=== PATIENT | female | born 1955 | race Caucasian/White ===

== ENCOUNTER 2016-12-13 14:32 | Emergency (ER) | payer OTHER ==
[~2016-12-13 14:32] MED LIST: AMLO10TA PO; ARTI99.0 OU; CIPR500T89 PO; CLOT1CRE71 TOP; DOCU100C PO; FLAG500T PO; GLYB5TA PO; LISI-538 PO; LISI10TA4 PO; ONDA1TAB15 PO; PANT40TA2 PO
[2016-12-13] MEDS ORDERED: IBUPROFEN 600 MG TAB As Ordered ONE (16:46)
[2016-12-13] MEDS ORDERED: ADACEL/BOOSTRIX VACCINE (DIPHTH/PERTUSS/ACELL/TETANUS)0.5ML SYR (90715) As Ordered ONE (16:47)
[2016-12-13] MEDS ORDERED: CEPHALEXIN 250 MG CAP As Ordered ONE (16:47)
--- NOTE | 2016-12-13 17:33 | EDDOCDS ---
Nurse's Notes [facility] Name: Sweetie Juárez Age: 61 yrs Sex: Female : 1955 Arrival Date: 12/13/2016 Time: 14:32 Bed PR Private MD: Denice Cortes C Diagnosis: Puncture wound without foreign body, right foot Presentation: 12/13 14:47 Presenting complaint: Patient states: right foot puncture injury, stepped on a nail rs3 friday. Adult Sepsis Screening: The patient does not have new or worsening altered mentation. Patient's respiratory rate is less than 22. Systolic blood pressure is greater than 100. Patient has a qSOFA score of 0- Negative Sepsis Screen. Suicide/Homicide risk assessment- the patient denies having any suicidal and/or homicidal ideations and does not present with any other emotional, behavioral or mental health complaints. Status: Patient is not a electronic service technician or dependent. Transition of care: patient was not received from another setting of care. 14:47 Acuity: JEROMY Level 3 rs3 14:47 Method Of Arrival: Walkin/Carried/Asstd rs3 Triage Assessment: 14:48 General: Appears in no apparent distress. Pain: Location: right foot. Pt Declines HIV rs3 testing. Musculoskeletal: Reports Pain is 8 out of 10 on a pain scale. Historical: - Allergies: Aspirin (Rash); Codeine Sulfate (Vomit); Red Allergy Pills (itching); - Home Meds: 1. pantoprazole 40 mg oral TbEC 1 tab once daily 2. lisinopril 20 mg Oral tab 1 tab once daily 3. glyburide 5 mg Oral tab 1 tab 2 times per day 4. Colace 100 mg oral cap 1 cap 2 times per day - PMHx: cervical cancer; Diabetes - NIDDM: controlled; GERD; Hypertension; - PSHx: OOPHORECTOMY - UNILATERAL; - Social history: Smoking status: Patient states former smoker of tobacco. No barriers to communication noted, The patient speaks fluent Burkinan. - Family history: Not pertinent. - : The pt / caregiver states he / she is not on anticoagulants. Home medication list is obtained from the patient. - Exposure Risk Screening:: None identified. Screenin:29 Screening information is obtained from the patient. Fall risk: No risks identified. dwg Assistance ADL's: requires no assistance with activities of daily living. Abuse/DV Screen: The patient / caregiver reports he/she is: not in a situation that causes fear, pain or injury. Nutritional screening: No deficits noted. Advance Directives: Currently, there is no health care proxy. There is no active DNR order. There is no living will. There is no Power of Tractor Expert. Advance directive information has not previously been placed in an [facility] medical record. Further advance directive information is declined. home support is adequate. Assessment: 16:37 General: Appears in no apparent distress, Behavior is cooperative. General: Stepped on dwg a nail 2-3 days ago, puncture wound to sole of right foot, no bleeding, no redness or drainage noted.. Pain: Location: arch of right foot Pain currently is 5 out of 10 on a pain scale. Neurological: Level of Consciousness is awake, alert, Oriented to person, place, time. Respiratory: Airway is patent Respiratory effort is even, unlabored, Respiratory pattern is regular, symmetrical. 16:45 General: medicated per order. ms2 Vital Signs: 14:35 BP 157 / 86; Pulse 111; Resp 18; Temp 97.4; Pulse Ox 96% ; Weight 116.12 kg; Height 5 elp ft. 6 in. (167.64 cm); Pain 8/10; 17:32 BP 142 / 78; Pulse 92; Resp 20; Temp 98.0(T); Pulse Ox 97% on R/A; dwg 14:35 Body Mass Index 41.32 (116.12 kg, 167.64 cm) elp Vitals: 14:35 Log In Time: December 13, 2016 at 14:33. elp ED Course: 14:34 Patient visited by Kiya Tee PCA. elp 14:34 Patient moved to Waiting elp 14:35 Denice Cortes is Private Physician. elp 14:35 Patient visited by Kiya Tee PCA. elp 14:35 Patient moved to Pre RCE elp 14:48 Triage Initiated rs3 16:35 Patient moved to Triage 2 rs3 16:39 [facility]. mo1 16:39 Ethan Bruce MD is Attending Physician. mo1 16:51 Patient visited by Ryan Curry RN. ms2 16:51 Patient visited by Michael Parsons PA. mo1 16:51 Patient moved to TR1 ct3 16:55 Patient visited by Ryan Curry RN. ms2 17:17 Denice Cortes is Referral Physician. mo1 17:19 Patient moved to PR1 / 25 ct3 17:32 The patient / caregiver is instructed regarding the plan of care and ED course. dwg 17:32 No IV's were initiated during this patient's visit. No procedures done that require dwg assistance. Administered Medications: 16:45 Drug: Cephalexin 500 mg [cephalexin 250 mg capsule (2 caps)] Route: PO; ms2 16:45 Drug: Tetanus- Diptheria-Acellular Pertussis 0.5 ml [diphth,pertussis(acel),tetanus 2.5 ms2 Lf unit-8 mcg-5 Lf/0.5mL IM syringe (0.5 mL)] {Shoe Maker: clickTRUE. Exp: 01/09/2019. Lot #: [id number]. } Route: IM; Site: left deltoid; 16:45 Drug: Ibuprofen 600 mg [ibuprofen 600 mg tablet (1 tabs)] Route: PO; ms2 Order Results: There are currently no results for this order. Outcome: 17:17 Discharge ordered by Provider. mo1 17:29 Discharge Assessment: Patient awake, alert and oriented x 3. No cognitive and/or dwg functional deficits noted. Patient verbalized understanding of disposition instructions. patient administered narcotics - no. The following High Risk Discharge criteria are identified: None. Discharged to home ambulatory. Condition: good Condition: stable. No special radiology studies were completed. Property sent home with patient. 17:33 Patient left the ED. dwg Signatures: Ryan Curry RN RN ms2 Oleg Fairchild RN RN dwg Soosairaj, Rosemary, RN RN rs3 Korin Nunez, PLASTIC MOULD MAKER PLASTIC MOULD MAKER ct3 Michael Parsons PA PA mo1 Kiya Tee, PLASTIC MOULD MAKER PLASTIC MOULD MAKER elp MTDD
--- NOTE | 2016-12-13 17:33 | EDDOCDS ---
Physician Documentation [facility] Name: Sweetie Juárez Age: 61 yrs Sex: Female : 1955 Arrival Date: 12/13/2016 Time: 14:32 Bed PR Private MD: Denice Cortes C Disposition: 12/13/16 17:17 Discharged to Home/Self Care. Impression: Puncture wound without foreign body, right foot. - Condition is Stable. - Discharge Instructions: Foot Contusion, Puncture Wound. - Prescriptions for Keflex 500 mg Oral Capsule - take 1 capsule by ORAL route every 8 hours for 10 days; 30 capsule. - Medication Reconciliation, Local Pharmacy Hours form. - Follow up: Denice Cortes; When: Call to arrange an appointment; Reason: Recheck today's complaints, Continuance of care. - Problem is new. - Symptoms are unchanged. Historical: - Allergies: Aspirin (Rash); Codeine Sulfate (Vomit); Red Allergy Pills (itching); - Home Meds: 1. pantoprazole 40 mg oral TbEC 1 tab once daily 2. lisinopril 20 mg Oral tab 1 tab once daily 3. glyburide 5 mg Oral tab 1 tab 2 times per day 4. Colace 100 mg oral cap 1 cap 2 times per day - PMHx: cervical cancer; Diabetes - NIDDM: controlled; GERD; Hypertension; - PSHx: OOPHORECTOMY - UNILATERAL; - Social history: Smoking status: Patient states former smoker of tobacco. No barriers to communication noted, The patient speaks fluent Kittitian. - Family history: Not pertinent. - : The pt / caregiver states he / she is not on anticoagulants. Home medication list is obtained from the patient. - Exposure Risk Screening:: None identified. Vital Signs: 12/13 14:35 BP 157 / 86; Pulse 111; Resp 18; Temp 97.4; Pulse Ox 96% ; Weight 116.12 kg / 256 lbs; elp Height 5 ft. 6 in. (167.64 cm); Pain 8/10; 17:32 BP 142 / 78; Pulse 92; Resp 20; Temp 98.0(T); Pulse Ox 97% on R/A; dwg 14:35 Body Mass Index 41.32 (116.12 kg, 167.64 cm) elp MDM: 16:43 Cephalexin 500 mg PO once ordered. mo1 16:43 Tetanus- Diptheria-Acellular Pertussis 0.5 ml IM once; Routine booster 10-64yrs, >64 mo1 with child contact [place] [employer] ordered. 16:43 Dressing ordered. mo1 16:43 Ibuprofen 600 mg PO once ordered. mo1 16:45 Foot, Complete Ordered. EDMS Administered Medications: 16:45 Drug: Cephalexin 500 mg [cephalexin 250 mg capsule (2 caps)] Route: PO; ms2 16:45 Drug: Tetanus- Diptheria-Acellular Pertussis 0.5 ml [diphth,pertussis(acel),tetanus 2.5 ms2 Lf unit-8 mcg-5 Lf/0.5mL IM syringe (0.5 mL)] {Professor Of Latin American Studies: Fondu. Exp: 01/09/2019. Lot #: [id number]. } Route: IM; Site: left deltoid; 16:45 Drug: Ibuprofen 600 mg [ibuprofen 600 mg tablet (1 tabs)] Route: PO; ms2 Signatures: Dispatcher [employer] EDMS Oleg Fairchild, RN RN yoshig Liz Hassan RN RN rs3 Michael Parsons PA PA mo1 Ryan Curry RN ms2 MTDD
--- NOTE | 2016-12-14 22:10 | REP ---
The right foot is without acute fracture, subluxation ,or dislocation. There is a large plantar calcaneal spur and a small to moderate spur at the Achilles tendinous insertion on the calcaneus. There is some generalized soft tissue swelling seen of the ankle and foot as well. Impression : right foot without fracture or dislocation. No visualized retained radiopaque foreign body. Generalized soft tissue swelling in the ankle and foot. Calcaneal spurs Signed by Viki Smiley MD 12/14/2016 10:02 P
--- NOTE | 2016-12-15 18:34 | EDDOCDS ---
Physician Documentation [facility] Name: Sweetie Juárez Age: 61 yrs Sex: Female : 1955 Arrival Date: 12/13/2016 Time: 14:32 Bed PR Private MD: Denice Cortes C Disposition: 12/13/16 17:17 Discharged to Home/Self Care. Impression: Puncture wound without foreign body, right foot. - Condition is Stable. - Discharge Instructions: Foot Contusion, Puncture Wound. - Prescriptions for Keflex 500 mg Oral Capsule - take 1 capsule by ORAL route every 8 hours for 10 days; 30 capsule. - Medication Reconciliation, Local Pharmacy Hours form. - Follow up: Denice Cortes; When: Call to arrange an appointment; Reason: Recheck today's complaints, Continuance of care. - Problem is new. - Symptoms are unchanged. Historical: - Allergies: Aspirin (Rash); Codeine Sulfate (Vomit); Red Allergy Pills (itching); - Home Meds: 1. pantoprazole 40 mg oral TbEC 1 tab once daily 2. lisinopril 20 mg Oral tab 1 tab once daily 3. glyburide 5 mg Oral tab 1 tab 2 times per day 4. Colace 100 mg oral cap 1 cap 2 times per day - PMHx: cervical cancer; Diabetes - NIDDM: controlled; GERD; Hypertension; - PSHx: OOPHORECTOMY - UNILATERAL; - Social history: Smoking status: Patient states former smoker of tobacco. No barriers to communication noted, The patient speaks fluent Indian. - Family history: Not pertinent. - : The pt / caregiver states he / she is not on anticoagulants. Home medication list is obtained from the patient. - Exposure Risk Screening:: None identified. Vital Signs: 12/13 14:35 BP 157 / 86; Pulse 111; Resp 18; Temp 97.4; Pulse Ox 96% ; Weight 116.12 kg / 256 lbs; elp Height 5 ft. 6 in. (167.64 cm); Pain 8/10; 17:32 BP 142 / 78; Pulse 92; Resp 20; Temp 98.0(T); Pulse Ox 97% on R/A; dwg 14:35 Body Mass Index 41.32 (116.12 kg, 167.64 cm) elp MDM: 16:43 Cephalexin 500 mg PO once ordered. mo1 16:43 Tetanus- Diptheria-Acellular Pertussis 0.5 ml IM once; Routine booster 10-64yrs, >64 mo1 with child contact [place] [employer] ordered. 16:43 Dressing ordered. mo1 16:43 Ibuprofen 600 mg PO once ordered. mo1 16:45 Foot, Complete Ordered. EDMS 12/14 12:58 T-Sheet-- Draft Copy was scanned into [employer] and attached to record. gb Administered Medications: 12/13 16:45 Drug: Cephalexin 500 mg [cephalexin 250 mg capsule (2 caps)] Route: PO; ms2 16:45 Drug: Tetanus- Diptheria-Acellular Pertussis 0.5 ml [diphth,pertussis(acel),tetanus 2.5 ms2 Lf unit-8 mcg-5 Lf/0.5mL IM syringe (0.5 mL)] {Machining Manager: [employer]. Exp: 01/09/2019. Lot #: [id number]. } Route: IM; Site: left deltoid; 16:45 Drug: Ibuprofen 600 mg [ibuprofen 600 mg tablet (1 tabs)] Route: PO; ms2 Signatures: Dispatcher [employer] EDIL Oleg Fairchild RN RN Joan Nash, Reg Reg Liz HassanRN RN rs3 Michael Parsons PA PA mo1 Ryan Curry RN ms2 The chart was reviewed and I authenticate all verbal orders and agree with the evaluation and treatment provided.Attachments: 12/14 12:58 T-Sheet-- Draft Copy gb Chart Complete MTDD
--- NOTE | 2016-12-15 18:34 | EDDOCDS ---
Physician Documentation [facility] Name: Sweetie Juárez Age: 61 yrs Sex: Female : 1955 Arrival Date: 12/13/2016 Time: 14:32 Bed PR Private MD: Denice Cortes C Disposition: 12/13/16 17:17 Discharged to Home/Self Care. Impression: Puncture wound without foreign body, right foot. - Condition is Stable. - Discharge Instructions: Foot Contusion, Puncture Wound. - Prescriptions for Keflex 500 mg Oral Capsule - take 1 capsule by ORAL route every 8 hours for 10 days; 30 capsule. - Medication Reconciliation, Local Pharmacy Hours form. - Follow up: Denice Cortes; When: Call to arrange an appointment; Reason: Recheck today's complaints, Continuance of care. - Problem is new. - Symptoms are unchanged. Historical: - Allergies: Aspirin (Rash); Codeine Sulfate (Vomit); Red Allergy Pills (itching); - Home Meds: 1. pantoprazole 40 mg oral TbEC 1 tab once daily 2. lisinopril 20 mg Oral tab 1 tab once daily 3. glyburide 5 mg Oral tab 1 tab 2 times per day 4. Colace 100 mg oral cap 1 cap 2 times per day - PMHx: cervical cancer; Diabetes - NIDDM: controlled; GERD; Hypertension; - PSHx: OOPHORECTOMY - UNILATERAL; - Social history: Smoking status: Patient states former smoker of tobacco. No barriers to communication noted, The patient speaks fluent Norwegian. - Family history: Not pertinent. - : The pt / caregiver states he / she is not on anticoagulants. Home medication list is obtained from the patient. - Exposure Risk Screening:: None identified. Vital Signs: 12/13 14:35 BP 157 / 86; Pulse 111; Resp 18; Temp 97.4; Pulse Ox 96% ; Weight 116.12 kg / 256 lbs; elp Height 5 ft. 6 in. (167.64 cm); Pain 8/10; 17:32 BP 142 / 78; Pulse 92; Resp 20; Temp 98.0(T); Pulse Ox 97% on R/A; dwg 14:35 Body Mass Index 41.32 (116.12 kg, 167.64 cm) elp MDM: 16:43 Cephalexin 500 mg PO once ordered. mo1 16:43 Tetanus- Diptheria-Acellular Pertussis 0.5 ml IM once; Routine booster 10-64yrs, >64 mo1 with child contact [place] [employer] ordered. 16:43 Dressing ordered. mo1 16:43 Ibuprofen 600 mg PO once ordered. mo1 16:45 Foot, Complete Ordered. EDMS 12/14 12:58 T-Sheet-- Draft Copy was scanned into [employer] and attached to record. gb Administered Medications: 12/13 16:45 Drug: Cephalexin 500 mg [cephalexin 250 mg capsule (2 caps)] Route: PO; ms2 16:45 Drug: Tetanus- Diptheria-Acellular Pertussis 0.5 ml [diphth,pertussis(acel),tetanus 2.5 ms2 Lf unit-8 mcg-5 Lf/0.5mL IM syringe (0.5 mL)] {Regional Business Manager: [employer]. Exp: 01/09/2019. Lot #: [id number]. } Route: IM; Site: left deltoid; 16:45 Drug: Ibuprofen 600 mg [ibuprofen 600 mg tablet (1 tabs)] Route: PO; ms2 Signatures: Dispatcher MedHo EDOH Oleg Fairchild RN RN Joan Nash, Reg Reg Liz HassanRN RN rs3 Michael Parsons PA PA mo1 Ryan Curry RN ms2 The chart was reviewed and I authenticate all verbal orders and agree with the evaluation and treatment provided.Attachments: 12/14 12:58 T-Sheet-- Draft Copy gb Chart Complete MTDD
--- NOTE | 2016-12-15 18:34 | EDDOCDS ---
Nurse's Notes [facility] Name: Sweetie Juárez Age: 61 yrs Sex: Female : 1955 Arrival Date: 12/13/2016 Time: 14:32 Bed PR Private MD: Denice Cortes C Diagnosis: Puncture wound without foreign body, right foot Presentation: 12/13 14:47 Presenting complaint: Patient states: right foot puncture injury, stepped on a nail rs3 friday. Adult Sepsis Screening: The patient does not have new or worsening altered mentation. Patient's respiratory rate is less than 22. Systolic blood pressure is greater than 100. Patient has a qSOFA score of 0- Negative Sepsis Screen. Suicide/Homicide risk assessment- the patient denies having any suicidal and/or homicidal ideations and does not present with any other emotional, behavioral or mental health complaints. Status: Patient is not a line service attendant or dependent. Transition of care: patient was not received from another setting of care. 14:47 Acuity: JEROMY Level 3 rs3 14:47 Method Of Arrival: Walkin/Carried/Asstd rs3 Triage Assessment: 14:48 General: Appears in no apparent distress. Pain: Location: right foot. Pt Declines HIV rs3 testing. Musculoskeletal: Reports Pain is 8 out of 10 on a pain scale. Historical: - Allergies: Aspirin (Rash); Codeine Sulfate (Vomit); Red Allergy Pills (itching); - Home Meds: 1. pantoprazole 40 mg oral TbEC 1 tab once daily 2. lisinopril 20 mg Oral tab 1 tab once daily 3. glyburide 5 mg Oral tab 1 tab 2 times per day 4. Colace 100 mg oral cap 1 cap 2 times per day - PMHx: cervical cancer; Diabetes - NIDDM: controlled; GERD; Hypertension; - PSHx: OOPHORECTOMY - UNILATERAL; - Social history: Smoking status: Patient states former smoker of tobacco. No barriers to communication noted, The patient speaks fluent [place]. - Family history: Not pertinent. - : The pt / caregiver states he / she is not on anticoagulants. Home medication list is obtained from the patient. - Exposure Risk Screening:: None identified. Screenin:29 Screening information is obtained from the patient. Fall risk: No risks identified. dwg Assistance ADL's: requires no assistance with activities of daily living. Abuse/DV Screen: The patient / caregiver reports he/she is: not in a situation that causes fear, pain or injury. Nutritional screening: No deficits noted. Advance Directives: Currently, there is no health care proxy. There is no active DNR order. There is no living will. There is no Power of Team Guide. Advance directive information has not previously been placed in an [facility] medical record. Further advance directive information is declined. home support is adequate. Assessment: 16:37 General: Appears in no apparent distress, Behavior is cooperative. General: Stepped on dwg a nail 2-3 days ago, puncture wound to sole of right foot, no bleeding, no redness or drainage noted.. Pain: Location: arch of right foot Pain currently is 5 out of 10 on a pain scale. Neurological: Level of Consciousness is awake, alert, Oriented to person, place, time. Respiratory: Airway is patent Respiratory effort is even, unlabored, Respiratory pattern is regular, symmetrical. 16:45 General: medicated per order. ms2 Vital Signs: 14:35 BP 157 / 86; Pulse 111; Resp 18; Temp 97.4; Pulse Ox 96% ; Weight 116.12 kg; Height 5 elp ft. 6 in. (167.64 cm); Pain 8/10; 17:32 BP 142 / 78; Pulse 92; Resp 20; Temp 98.0(T); Pulse Ox 97% on R/A; dwg 14:35 Body Mass Index 41.32 (116.12 kg, 167.64 cm) elp Vitals: 14:35 Log In Time: December 13, 2016 at 14:33. elp ED Course: 14:34 Patient visited by Kiya Tee PCA. elp 14:34 Patient moved to Waiting elp 14:35 Denice Cortes is Private Physician. elp 14:35 Patient visited by Kiya Tee PCA. elp 14:35 Patient moved to Pre RCE elp 14:48 Triage Initiated rs3 16:35 Patient moved to Triage 2 rs3 16:39 [facility]. mo1 16:39 Ethan Bruce MD is Attending Physician. mo1 16:51 Patient visited by Ryan Curry RN. ms2 16:51 Patient visited by Michael Parsons PA. mo1 16:51 Patient moved to TR1 ct3 16:55 Patient visited by Ryan Curry RN. ms2 17:17 Denice Cortes is Referral Physician. mo1 17:19 Patient moved to PR1 / 25 ct3 17:32 The patient / caregiver is instructed regarding the plan of care and ED course. dwg 17:32 No IV's were initiated during this patient's visit. No procedures done that require dwg assistance. 12/14 12:58 T-Sheet-- Draft Copy was scanned into [employer] and attached to record. gb 22:57 Foot, Complete Returned. EDMS Administered Medications: 12/13 16:45 Drug: Cephalexin 500 mg [cephalexin 250 mg capsule (2 caps)] Route: PO; ms2 16:45 Drug: Tetanus- Diptheria-Acellular Pertussis 0.5 ml [diphth,pertussis(acel),tetanus 2.5 ms2 Lf unit-8 mcg-5 Lf/0.5mL IM syringe (0.5 mL)] {Comb Setter: Meilimei. Exp: 01/09/2019. Lot #: [id number]. } Route: IM; Site: left deltoid; 16:45 Drug: Ibuprofen 600 mg [ibuprofen 600 mg tablet (1 tabs)] Route: PO; ms2 Order Results: Radiology Order: Foot, Complete Test: Foot, Complete REASON FOR EXAMINATION: nail PW to plantar arch; The right foot is without acute fracture, subluxation ,or dislocation. There is; a large plantar calcaneal spur and a small to moderate spur at the Achilles; tendinous insertion on the calcaneus. There is some generalized soft tissue; swelling seen of the ankle and foot as well.; ; Impression : right foot without fracture or dislocation. No visualized retained; radiopaque foreign body.; ; Generalized soft tissue swelling in the ankle and foot.; ; Calcaneal spurs; ; ; Signed by; Viki Smiley MD 12/14/2016 10:02 P; Outcome: 17:17 Discharge ordered by Provider. mo1 17:29 Discharge Assessment: Patient awake, alert and oriented x 3. No cognitive and/or dwg functional deficits noted. Patient verbalized understanding of disposition instructions. patient administered narcotics - no. The following High Risk Discharge criteria are identified: None. Discharged to home ambulatory. Condition: good Condition: stable. No special radiology studies were completed. Property sent home with patient. 17:33 Patient left the ED. yoshi Signatures: Dispatcher [employer] EDRyan Elise,WHITNEY RN ms2 Oleg Fairchild RN RN [facility] Joan Kwon, Reg Reg Liz Hassan RN RN rs3 Korin Nunez, SALES AGENT CASUALTY INSURANCE SALES AGENT CASUALTY INSURANCE ct3 Michael Parsons PA PA mo1 Kiya Tee, SALES AGENT CASUALTY INSURANCE SALES AGENT CASUALTY INSURANCE elp Chart Complete MTDD
== END 2016-12-13 17:33 | disposition home or self-care (01) ==
LOC: M ED 14:32
DX: S91.331A Puncture wound without foreign body, right foot, initial encounter (principal); W45.0XXA Nail entering through skin, initial encounter; Y92.018 Other place in single-family (private) house as the place of occurrence of the external cause; Y93.89 Activity, other specified; Y99.8 Other external cause status; I10 Essential (primary) hypertension; E11.9 Type 2 diabetes mellitus without complications; K21.9 Gastro-esophageal reflux disease without esophagitis; Z85.41 Personal history of malignant neoplasm of cervix uteri; Z79.899 Other long term (current) drug therapy; Z79.84 Long term (current) use of oral hypoglycemic drugs; Z88.2 Allergy status to sulfonamides; Z88.5 Allergy status to narcotic agent; Z88.6 Allergy status to analgesic agent; Z88.8 Allergy status to other drugs, medicaments and biological substances; Z87.891 Personal history of nicotine dependence

== ENCOUNTER → 2017-02-14 | Outpatient (CLI) | payer OTHER ==
[2017-02-14 14:16] LABS: BASO % 0.4 % (0.0-1.0); EOS # 0.3 K/mm3 (0.0-0.50); EOS % 3.7 % (0.0-3.0); LARGE UNSTAINED CELL # 0.1 K/mm3 (0.0-0.4); LARGE UNSTAINED CELL % 1.8 % (0.0-4.0); LYMPH # 2.5 K/mm3 (1.5-4.5); LYMPH % 31.7 % (24.0-44.0); MEAN CORPUSCULAR HEMOGLOBIN 30.8 pg (27.0-33.0); MEAN CORPUSCULAR VOLUME 93.2 fl (80.0-96.0); MONO # 0.4 K/mm3 (0.0-0.8); MONO % 5.1 % (0.0-5.0); NEUTROPHILS # 4.6 K/mm3 (1.8-7.7); NEUTROPHILS % 57.4 % (36.0-66.0); PLATELET COUNT, AUTOMATED 421 k/mm3 (150-450); RED CELL DISTRIBUTION WIDTH 12.3 % (11.5-14.5)
[2017-02-14 14:58] LABS: ALBUMIN 3.6 GM/DL (3.2-5.2); ALBUMIN/GLOBULIN RATIO 1.09 (1.00-1.93); ALKALINE PHOSPHATASE 91 U/L (45-117); ALT/SGPT 40 U/L (12-78); ANION GAP 7 MEQ/L (8-16); AST/SGOT 43 U/L (15-37); BILIRUBIN,TOTAL 0.6 MG/DL (0.2-1.0); BLOOD UREA NITROGEN 11 MG/DL (7-18); CALCIUM LEVEL 9.2 MG/DL (8.8-10.2); CARBON DIOXIDE LEVEL 28 MEQ/L (21-32); CHLORIDE LEVEL 104 MEQ/L (98-107); CHOLESTEROL LEVEL 220 MG/DL (<200); CREATININE FOR GFR 0.66 MG/DL (0.55-1.02); GLOMERULAR FILTRATION RATE > 60.0 (>45); GLUCOSE, FASTING 164 MG/DL (80-110); POTASSIUM SERUM 4.9 MEQ/L (3.5-5.1); SODIUM LEVEL 139 MEQ/L (136-145); TOTAL PROTEIN 6.9 GM/DL (6.4-8.2); TRIGLYCERIDES LEVEL 275 MG/DL (<150)
== END ==
LOC: M LAB 13:30
PROVIDERS: ATTEND Family Medicine Addiction Medicine
DX: E11.9 Type 2 diabetes mellitus without complications (principal)

== ENCOUNTER 2017-04-21 20:30 | Emergency (ER) | payer OTHER ==
[~2017-04-21] VITALS: Ht 167.6 cm; Wt 111.1 kg
[2017-04-21] MEDS ORDERED: ALOG25TA (21:00)
[2017-04-21] MEDS ORDERED: ONDANSETRON 4 MG ORAL DISINTEGRATING TAB (S0181) PO ONE (22:15)
[2017-04-21] MEDS ORDERED: ZOFR4TAB3 PO (23:05)
[2017-04-21] MEDS ORDERED: MACR100C3 PO (23:05)
[2017-04-21] MEDS ORDERED: PYRI200T5 PO (23:05)
[2017-04-21] MEDS ORDERED: PHENAZOPYRIDINE 100 MG TAB PO ONE (23:15)
[2017-04-21] MEDS ORDERED: NITROFURANTOIN (MACROBID) 100 MG CAP PO ONE (23:15)
[2017-04-21 23:41] VITALS: BP 163/84
== END 2017-04-21 23:43 | disposition home or self-care (01) ==
LOC: M ED 22:33
DX: N30.00 Acute cystitis without hematuria (principal); S30.811A Abrasion of abdominal wall, initial encounter; X58.XXXA Exposure to other specified factors, initial encounter; Y92.9 Unspecified place or not applicable; Y93.9 Activity, unspecified; Y99.9 Unspecified external cause status; E11.9 Type 2 diabetes mellitus without complications; I10 Essential (primary) hypertension; Z85.41 Personal history of malignant neoplasm of cervix uteri; Z87.01 Personal history of pneumonia (recurrent); Z87.891 Personal history of nicotine dependence; Z79.899 Other long term (current) drug therapy; Z88.5 Allergy status to narcotic agent; Z88.8 Allergy status to other drugs, medicaments and biological substances

== ENCOUNTER → 2017-10-07 | Outpatient (CLI) | payer OTHER ==
[~2017-10-07] MED LIST changes: +ALOG25TA; +CIPR-249 PO; -CIPR500T89 PO; -DOCU100C PO; +DOCU100C16 PO; +MACR100C43 PO; -ONDA1TAB15 PO; +ONDA4TAB5 PO; +PYRI1TAB5 PO; +ZOFR4TAB3 PO
[2017-10-07 14:12] LABS: ALBUMIN 3.8 GM/DL (3.2-5.2); ALBUMIN/GLOBULIN RATIO 1.19 (1.00-1.93); ALKALINE PHOSPHATASE 96 U/L (45-117); ALT/SGPT 32 U/L (12-78); ANION GAP 6 MEQ/L (8-16); AST/SGOT 37 U/L (7-37); BILIRUBIN,TOTAL 0.5 MG/DL (0.2-1.0); BLOOD UREA NITROGEN 18 MG/DL (7-18); CALCIUM LEVEL 9.7 MG/DL (8.8-10.2); CARBON DIOXIDE LEVEL 30 MEQ/L (21-32); CHLORIDE LEVEL 99 MEQ/L (98-107); CHOLESTEROL LEVEL 235 MG/DL (<200); CREATININE FOR GFR 0.82 MG/DL (0.55-1.02); GLOMERULAR FILTRATION RATE > 60.0 (>45); GLUCOSE, FASTING 271 MG/DL (80-110); SODIUM LEVEL 135 MEQ/L (136-145); TRIGLYCERIDES LEVEL 361 MG/DL (<150)
[2017-10-07 14:20] LABS: POTASSIUM SERUM 5.2 MEQ/L (3.5-5.1)
== END ==
LOC: M LAB 12:23
PROVIDERS: ATTEND Family Medicine Addiction Medicine
DX: E11.9 Type 2 diabetes mellitus without complications (principal)

== ENCOUNTER 2018-05-25 13:37 | Emergency (ER) | payer OTHER ==
[2018-05-25] MEDS: IBUPROFEN 600 MG TAB PO (15:37)
[2018-05-25 15:49] LABS: BASO # 0.1 10^3/uL (0.0-0.2); BASO % 0.6 % (0.0-1.0); EOS # 0.6 10^3/uL (0.0-0.50); EOS % 5.3 % (0.0-3.0); HEMATOCRIT 44.3 % (36.0-47.0); HEMOGLOBIN 15.1 g/dl (12.0-15.5); IMMATURE GRANULOCYTE % 0.2 % (0-3.0); LYMPH # 4.3 10^3/uL (1.5-4.5); LYMPH % 37.1 % (24.0-44.0); MEAN CORPUSCULAR HEMOGLOBIN 31.3 pg (27.0-33.0); MEAN CORPUSCULAR HGB CONC 34.1 g/dl (32.0-36.5); MEAN CORPUSCULAR VOLUME 91.9 fl (80.0-96.0); MONO # 0.9 10^3/uL (0.0-0.8); MONO % 7.7 % (0.0-5.0); NEUTROPHILS # 5.7 10^3/uL (1.8-7.7); NEUTROPHILS % 49.1 % (36.0-66.0); PLATELET COUNT, AUTOMATED 366 10^3/uL (150-450); RED BLOOD COUNT 4.82 10^6/uL (4.00-5.40); RED CELL DISTRIBUTION WIDTH 13.1 % (11.5-14.5); WHITE BLOOD COUNT 11.6 10^3/uL (4.0-10.0)
[2018-05-25 15:52] LABS: KETONE, URINE AUTO RFX NEGATIVE (NEGATIVE); LEUKOCYTE ESTERASE UR AUTO RFX TRACE (NEGATIVE); MUCUS, URINE RFX SMALL (NEGATIVE); NITRITE, URINE AUTO RFX NEGATIVE (NEGATIVE); RBC, URINE AUTO RFX 3 /HPF (0-3); SPECIFIC GRAVITY UR AUTO RFX 1.029 (1.002-1.035); SQUAM EPITHELIAL CELL UR AURFX 4 /HPF (0-6); WBC, URINE AUTO RFX 3 /HPF (0-3)
[2018-05-25 16:20] LABS: ANION GAP 8 MEQ/L (8-16); BLOOD UREA NITROGEN 24 MG/DL (7-18); CALCIUM LEVEL 10.4 MG/DL (8.8-10.2); CARBON DIOXIDE LEVEL 30 MEQ/L (21-32); CHLORIDE LEVEL 99 MEQ/L (98-107); CREATININE FOR GFR 1.03 MG/DL (0.55-1.30); GLOMERULAR FILTRATION RATE 57.4 (>45); GLUCOSE, FASTING 377 MG/DL (70-100); POTASSIUM SERUM 5.1 MEQ/L (3.5-5.1); SODIUM LEVEL 137 MEQ/L (136-145)
== END 2018-05-25 17:20 | disposition home or self-care (01) ==
LOC: M ED 13:37
DX: N30.90 Cystitis, unspecified without hematuria (principal); B37.3 Candidiasis of vulva and vagina; E11.9 Type 2 diabetes mellitus without complications; I10 Essential (primary) hypertension; Z87.19 Personal history of other diseases of the digestive system; Z98.890 Other specified postprocedural states; Z87.891 Personal history of nicotine dependence
CPT/HCPCS: 80048

== ENCOUNTER → 2018-09-02 | Outpatient (CLI) | payer OTHER | LOC: M RAD 14:26 | DX: M54.40 Lumbago with sciatica, unspecified side (principal); M51.36 Other intervertebral disc degeneration, lumbar region | CPT/HCPCS: 72110 ==

== ENCOUNTER → 2018-09-09 | Outpatient (REF) | payer OTHER ==
[2018-09-09 19:00] LABS: ALBUMIN 3.5 GM/DL (3.2-5.2); ALBUMIN/GLOBULIN RATIO 1.09 (1.00-1.93); ALKALINE PHOSPHATASE 91 U/L (45-117); ALT/SGPT 32 U/L (12-78); ANION GAP 6 MEQ/L (8-16); AST/SGOT 28 U/L (7-37); BILIRUBIN,TOTAL 0.4 MG/DL (0.2-1.0); BLOOD UREA NITROGEN 18 MG/DL (7-18); CALCIUM LEVEL 9.3 MG/DL (8.8-10.2); CARBON DIOXIDE LEVEL 28 MEQ/L (21-32); CHLORIDE LEVEL 104 MEQ/L (98-107); CHOLESTEROL LEVEL 224 MG/DL (<200); CHOLESTEROL RISK RATIO 7.724 (<5); CREATININE FOR GFR 0.93 MG/DL (0.55-1.30); GLOMERULAR FILTRATION RATE > 60.0 (>45); GLUCOSE, FASTING 237 MG/DL (70-100); HDL CHOLESTEROL 29 MG/DL (>40); NON-HDL-C 195 MG/DL; POTASSIUM SERUM 5.2 MEQ/L (3.5-5.1); SODIUM LEVEL 138 MEQ/L (136-145); TOTAL PROTEIN 6.7 GM/DL (6.4-8.2); TRIGLYCERIDES LEVEL 581 MG/DL (<150)
[2018-09-09 19:06] LABS: ESTIMATED AVERAGE GLUCOSE 255 MG/DL (60-110); HEMOGLOBIN A1c 10.5 %
== END ==
LOC: M LAB REF 17:05
DX: E11.9 Type 2 diabetes mellitus without complications (principal)
CPT/HCPCS: 84443

== ENCOUNTER 2018-09-15 12:57 | Emergency (ER) | payer OTHER | END 2018-09-15 14:06 | disposition home or self-care (01) | LOC: M ED 12:57 | DX: K04.7 Periapical abscess without sinus (principal); I10 Essential (primary) hypertension; Z87.891 Personal history of nicotine dependence; Z88.5 Allergy status to narcotic agent; Z88.8 Allergy status to other drugs, medicaments and biological substances; Z79.899 Other long term (current) drug therapy | CPT/HCPCS: 99283 ==

== ENCOUNTER → 2018-11-04 | Outpatient (CLI) | payer OTHER | LOC: M RAD 11:40 | DX: Z12.31 Encounter for screening mammogram for malignant neoplasm of breast (principal); Z80.3 Family history of malignant neoplasm of breast | CPT/HCPCS: 77067 ==

== ENCOUNTER 2018-12-28 19:02 | Emergency (ER) | payer OTHER ==
[~2018-12-28] VITALS: Ht 170.2 cm; Wt 126.7 kg
[~2018-12-28 19:02] MED LIST changes: +ALOG25TA PO; +CEFD1CAP8 PO; +FLUC150T PO; +LISI40TA; +LISI40TA PO; -PANT40TA2 PO; +PANT40TA3 PO; +PENI500T PO; +ZOFR4TAB14 PO; -ZOFR4TAB3 PO
[2018-12-28] MEDS ORDERED: NS 1,000 ML IV ONE (20:00)
[2018-12-28] MEDS ORDERED: PANTOPRAZOLE 40MG INJ (PROTONIX) (C9113) IV ONE (20:00)
[2018-12-28] MEDS ORDERED: GI COCKTAIL 50ML BTL(HYOSCYAMINE/MAALOX/LIDOCAINE VISCOUS)(1:3:1) PO ONE (20:00)
[2018-12-28 20:10] LABS: BASO # 0.1 10^3/uL (0.0-0.2); BASO % 0.4 % (0.0-1.0); EOS # 0.3 10^3/uL (0.0-0.50); EOS % 2.4 % (0.0-3.0); HEMATOCRIT 42.8 % (36.0-47.0); HEMOGLOBIN 14.8 g/dl (12.0-15.5); LYMPH # 2.7 10^3/uL (1.5-4.5); MEAN CORPUSCULAR HEMOGLOBIN 31.4 pg (27.0-33.0); MEAN CORPUSCULAR HGB CONC 34.6 g/dl (32.0-36.5); MEAN CORPUSCULAR VOLUME 90.9 fl (80.0-96.0); MONO # 1.2 10^3/uL (0.0-0.8); MONO % 9.6 % (0.0-5.0); NEUTROPHILS # 8.1 10^3/uL (1.8-7.7); NEUTROPHILS % 65.4 % (36.0-66.0); PLATELET COUNT, AUTOMATED 352 10^3/uL (150-450); RED BLOOD COUNT 4.71 10^6/uL (4.00-5.40); WHITE BLOOD COUNT 12.3 10^3/uL (4.0-10.0)
[2018-12-28 20:15] LABS: ALBUMIN 3.8 GM/DL (3.2-5.2); BILIRUBIN,TOTAL 1.1 MG/DL (0.2-1.0); CALCIUM LEVEL 9.4 MG/DL (8.8-10.2); CREATININE FOR GFR 1.17 MG/DL (0.55-1.30); GLOMERULAR FILTRATION RATE 49.6 (>45); POTASSIUM SERUM 4.2 MEQ/L (3.5-5.1); TOTAL PROTEIN 6.9 GM/DL (6.4-8.2)
--- NOTE | 2018-12-28 22:05 | REPVR ---
EXAM: US Abdomen Limited, Right Upper Quadrant EXAM DATE/TIME: 12/28/2018 9:25 PM CLINICAL HISTORY: 63 years old, female; Pain; Abdominal pain; Acute; Additional info: Epigastric pain, elev lfts new TECHNIQUE: Real-time ultrasound of the abdomen with image documentation. Examination was focused on the right upper quadrant. COMPARISON: GALLBLADDER US 10/19/2014 6:20 PM FINDINGS: Liver: There is a diffuse decrease in hepatic parenchymal density, consistent with fatty infiltration. Gallbladder: Cholelithiasis. Common bile duct: Common bile duct measures 5.1 mm. Pancreas: Visualized pancreas is unremarkable. Right kidney: Right kidney measures 11.7 x 7.6 x 6.6 cm. IMPRESSION: 1. There is a diffuse decrease in hepatic parenchymal density, consistent with fatty infiltration. 2. Cholelithiasis. Cystic changes in the gallbladder fundus may indicate the presence of adenomyomatosis. Electronically signed by: Nino Woo On 12/28/2018 22:04:55 PM
[2018-12-28 22:45] VITALS: BP 131/60
--- NOTE | 2018-12-29 03:22 | REP ---
Clinical: Abdominal pain with nausea Technique: Upright view of the chest with supine and upright views of the abdomen and pelvis. Findings: Frontal upright view of the chest demonstrates no acute cardiopulmonary process or free air below the diaphragm to suspect pneumoperitoneum. Supine and upright views of the abdomen and pelvis demonstrate nonspecific bowel gas pattern without obstruction or perforation. No organomegaly. No abnormal calcifications. Impression: Nonspecific bowel gas pattern. Electronically Signed by Cristino Cordero MD 12/29/2018 03:14 A
--- NOTE | 2018-12-29 11:00 | ED PDOC ---
Post-Departure Follow-Up dr zapata faxed formal report of us for fu Lyle Blake MD Dec 29, 2018 11:00
[2018-12-30 10:23] LABS: HEPATITIS A ANTIBODY IGM NEGATIVE (NEGATIVE); HEPATITIS B CORE ANTIBODY IGM NEGATIVE (NEGATIVE); HEPATITIS B SURFACE ANTIGEN NEGATIVE (NEGATIVE); HEPATITIS C VIRUS ABY INDEX 0.1 INDEX (<0.8)
== END 2018-12-28 22:51 | disposition home or self-care (01) ==
LOC: M ED 19:02
DX: K21.9 Gastro-esophageal reflux disease without esophagitis (principal); R94.5 Abnormal results of liver function studies; K76.0 Fatty (change of) liver, not elsewhere classified; K80.20 Calculus of gallbladder without cholecystitis without obstruction; R11.0 Nausea; I10 Essential (primary) hypertension; E11.9 Type 2 diabetes mellitus without complications; K57.92 Diverticulitis of intestine, part unspecified, without perforation or abscess without bleeding; Z87.19 Personal history of other diseases of the digestive system; Z85.41 Personal history of malignant neoplasm of cervix uteri; Z88.8 Allergy status to other drugs, medicaments and biological substances; Z88.5 Allergy status to narcotic agent; Z79.899 Other long term (current) drug therapy
CPT/HCPCS: 36415; 74021; 76705; 80053; 83690; 85025; 86705; 86709; 86803; 87340; 96374; 99284; C9113

== ENCOUNTER 2019-03-30 14:09 | Emergency (ER) | payer MEDICARE, MEDICAID ==
[~2019-03-30] VITALS: Ht 165.1 cm; Wt 122.5 kg
[~2019-03-30 14:09] MED LIST changes: +GLYB-147 PO
[2019-03-30] MEDS ORDERED: PANT40TA3 (14:20)
[2019-03-30] MEDS ORDERED: NS 1,000 ML IV SCH (15:46)
[2019-03-30] MEDS ORDERED: PANTOPRAZOLE 40MG INJ (PROTONIX) (C9113) IV ONE (16:00)
[2019-03-30 16:37] LABS: BASO # 0.1 10^3/uL (0.0-0.2); BASO % 0.6 % (0.0-1.0); EOS # 0.3 10^3/uL (0.0-0.50); EOS % 3.7 % (0.0-3.0); HEMATOCRIT 41.3 % (36.0-47.0); HEMOGLOBIN 13.6 g/dl (12.0-15.5); LYMPH # 3.1 10^3/uL (1.5-4.5); LYMPH % 35.9 % (24.0-44.0); MEAN CORPUSCULAR HEMOGLOBIN 31.3 pg (27.0-33.0); MEAN CORPUSCULAR HGB CONC 32.9 g/dl (32.0-36.5); MEAN CORPUSCULAR VOLUME 94.9 fl (80.0-96.0); MONO # 0.7 10^3/uL (0.0-0.8); MONO % 7.6 % (0.0-5.0); NEUTROPHILS # 4.4 10^3/uL (1.8-7.7); NEUTROPHILS % 51.8 % (36.0-66.0); PLATELET COUNT, AUTOMATED 378 10^3/uL (150-450); RED BLOOD COUNT 4.35 10^6/uL (4.00-5.40); WHITE BLOOD COUNT 8.6 10^3/uL (4.0-10.0)
--- NOTE | 2019-03-30 17:24 | REP ---
REASON: Abdominal pain. COMPARISON: 12/28/2018 which was within normal limits. The accompanying frontal view of the chest is unchanged from the prior exam showing no acute disease or free subdiaphragmatic air. Once again, the intestinal gas pattern is nonspecific. The organ silhouettes are for the most part obscured by the intestinal content. There is no evidence of intestinal obstruction or free intraperitoneal air. There is no change in the osseous structures. Chronici changes seen involving the spine and hips status quo. IMPRESSION:Nonspecific intestinal gas pattern. No significant change from the prior exam. Electronically Signed by Sergio Hooks DO 03/31/2019 10:21 A
[2019-03-30 17:30] LABS: ALBUMIN 3.4 GM/DL (3.2-5.2); BILIRUBIN,DIRECT 0.4 MG/DL (0.0-0.2); BILIRUBIN,TOTAL 0.7 MG/DL (0.2-1.0); CALCIUM LEVEL 9.8 MG/DL (8.8-10.2); CREATININE FOR GFR 1.28 MG/DL (0.55-1.30); GLOMERULAR FILTRATION RATE 44.6 (>45); POTASSIUM SERUM 5.7 MEQ/L (3.5-5.1); TOTAL PROTEIN 6.7 GM/DL (6.4-8.2)
[2019-03-30] MEDS ORDERED: NS 1,000 ML IV ONE (17:45)
[2019-03-30] MEDS ORDERED: HumuLIN R (REGULAR) INSULIN (NovoLIN R) **100U/ML** PER UNIT IV ONE (17:45)
[2019-03-30 17:52] VITALS: BP 107/56
[2019-03-30] MEDS ORDERED: ZOFR4TAB16 PO (19:07)
== END 2019-03-30 19:21 | disposition home or self-care (01) ==
LOC: M ED 14:09
DX: K29.70 Gastritis, unspecified, without bleeding (principal); E11.65 Type 2 diabetes mellitus with hyperglycemia; I10 Essential (primary) hypertension; K21.9 Gastro-esophageal reflux disease without esophagitis; Z88.5 Allergy status to narcotic agent; Z88.8 Allergy status to other drugs, medicaments and biological substances; Z79.899 Other long term (current) drug therapy
CPT/HCPCS: 74021; 80048; 80076; 82150; 83690; 85025; 96361; 96374; 96375; 99284; C9113

== ENCOUNTER 2019-04-21 19:54 | Inpatient (IN) | payer MEDICARE, MEDICAID ==
[~2019-04-21] VITALS: Ht 170.2 cm; Wt 107.6 kg
[~2019-04-21 19:54] MED LIST changes: +PANT40TA3; +ZOFR4TAB16 PO
[2019-04-21] MEDS ORDERED: KETOROLAC 30 MG/ML VIAL (J1885) IV ONE (21:00)
[2019-04-21] MEDS ORDERED: NS 1,000 ML IV ONE (21:00)
[2019-04-21] MEDS ORDERED: ONDANSETRON 4MG/2ML VIAL (J2405) IV ONE (21:00)
[2019-04-21 21:29] LABS: BASO % 0.1 % (0.0-1.0); HEMATOCRIT 42.8 % (36.0-47.0); LYMPH # 0.8 10^3/uL (1.5-4.5); LYMPH % 5.5 % (24.0-44.0); MEAN CORPUSCULAR HEMOGLOBIN 31.8 pg (27.0-33.0); MEAN CORPUSCULAR VOLUME 90.7 fl (80.0-96.0); MONO # 0.9 10^3/uL (0.0-0.8); MONO % 6.1 % (0.0-5.0); NEUTROPHILS # 12.4 10^3/uL (1.8-7.7); NEUTROPHILS % 87.9 % (36.0-66.0); PLATELET COUNT, AUTOMATED 412 10^3/uL (150-450); RED BLOOD COUNT 4.72 10^6/uL (4.00-5.40); WHITE BLOOD COUNT 14.1 10^3/uL (4.0-10.0)
[2019-04-21 21:51] LABS: HEMOGLOBIN A1c 12.1 %
[2019-04-21 22:37] LABS: ACETONE/KETONE 11.55 MG/DL (<2.81); ALBUMIN 3.5 GM/DL (3.2-5.2); BILIRUBIN,DIRECT 2.2 MG/DL (0.0-0.2); BILIRUBIN,TOTAL 2.9 MG/DL (0.2-1.0); CALCIUM LEVEL 9.8 MG/DL (8.8-10.2); CREATININE FOR GFR 1.05 MG/DL (0.55-1.30); MAGNESIUM LEVEL 1.8 MG/DL (1.8-2.4); PHOSPHORUS LEVEL 4.4 MG/DL (2.5-4.9); POTASSIUM SERUM 5.3 MEQ/L (3.5-5.1)
[2019-04-21] MEDS ORDERED: ISOVUE-370 76% 100ML VIAL (Q9967) As Ordered ONE (22:59)
--- NOTE | 2019-04-21 23:53 | REPVR ---
EXAM: CT Abdomen and Pelvis With Contrast EXAM DATE/TIME: 04/21/2019 8:58 PM CLINICAL HISTORY: 64 years old, female; Abdominal pain; Generalized; Additional info: Diffuse abd pain TECHNIQUE: Imaging protocol: Axial computed tomography images of the abdomen and pelvis with intravenous contrast. Coronal and sagittal reformatted images were created and reviewed. Radiation optimization: All CT scans at this facility use at least one of these dose optimization techniques: automated exposure control; mA and/or kV adjustment per patient size (includes targeted exams where dose is matched to clinical indication); or iterative reconstruction. Contrast material: ISO; Contrast volume: 100 ml; Contrast route: AC; COMPARISON: CT ABD PELVIS W/O CONTRAST 10/19/2014 2:30 PM FINDINGS: ABDOMEN: Liver: There is a diffuse decrease in hepatic parenchymal density, consistent with fatty infiltration. Gallbladder and bile ducts: Poorly calcified calculi and or aggregates of sludge demonstrated in the gallbladder. Pancreas: There is peripancreatic inflammatory stranding and fluid, consistent with acute pancreatitis. There is no pseudocyst or phlegmon demonstrated. No intrapancreatic gas demonstrated. Fluid extends along the anterior pararenal space and left paracolic gutter on the left. Spleen: Normal. No splenomegaly. Adrenals: Normal. No mass. Kidneys and ureters: Normal. No hydronephrosis. Stomach and bowel: Normal. No obstruction. No mucosal thickening. Appendix: No evidence of appendicitis. PELVIS: Bladder: Unremarkable as visualized. Reproductive: Calcified uterine fibroid. ABDOMEN and PELVIS: Intraperitoneal space: Normal. No free air. No significant fluid collection. Bones/joints: No acute fracture. No dislocation. Severe central spinal stenosis L3-4. Mild central spinal stenosis L4-5. Transitional L5 segment. Soft tissues: Otherwise unremarkable Vasculature: The aorta demonstrates mild atherosclerotic calcification. Lymph nodes: Peripancreatic lymphadenopathy measures up to 3.3 x 2 cm. Other findings: Several less than 3 mm subpleural pulmonary parenchymal nodules likely postinflammatory. No followup required. IMPRESSION: 1. There is a diffuse decrease in hepatic parenchymal density, consistent with fatty infiltration. 2. Poorly calcified calculi and or aggregates of sludge demonstrated in the gallbladder. 3. There is peripancreatic inflammatory stranding and fluid, consistent with acute pancreatitis. There is no pseudocyst or phlegmon demonstrated. No intrapancreatic gas demonstrated. Electronically signed by: Nino Woo On 04/21/2019 23:53:00 PM
[2019-04-22] VITALS (18 sets, daily range): BP systolic 82–160; BP diastolic 48–77
[2019-04-22] MEDS ORDERED: MORPHINE 4 MG/ML 1ML VIAL/SYRINGE (J2270) As Ordered ONE (00:04)
[2019-04-22] MEDS ORDERED: PANT-23 PO (00:28)
[2019-04-22] MEDS ORDERED: HumaLOG INSULIN (NovoLOG) PER UNIT SC STA (00:28)
[2019-04-22] MEDS ORDERED: LISI40TA PO (00:28)
[2019-04-22] MEDS ORDERED: NS 1,000 ML IV ONE ×4 (00:30→19:15)
[2019-04-22] MEDS ORDERED: ACETAMINOPHEN TAB 650MG DOSE (2X325MG) PO PRN (01:00)
[2019-04-22] MEDS ORDERED: MAALOX 30 ML SUSP *UDC PO PRN (01:00)
[2019-04-22] MEDS ORDERED: GLUCAGON FOR INJ 1 MG VIAL (J1610) SC PRN (01:00)
[2019-04-22] MEDS ORDERED: MOM 30ML SUSPENSION UDC PO PRN (01:00)
[2019-04-22] MEDS ORDERED: GLUCOSE 4 GM CHEW TABLET PO PRN (01:00)
[2019-04-22] MEDS ORDERED: LEVEMIR (INSULIN DETEMIR) 1 UNITS/0.01ML SC ONE (01:00)
[2019-04-22] MEDS ORDERED: DEXTROSE 50% 50 ML SYRINGE IV PRN (01:00)
--- NOTE | 2019-04-22 01:16 | REPVR ---
EXAM: US Abdomen Limited, Right Upper Quadrant EXAM DATE/TIME: 04/22/2019 12:51 AM CLINICAL HISTORY: 64 years old, female; Abdominal pain; Epigastric; Additional info: Pancreatitis/inc lfts ? cbd dilitation TECHNIQUE: Imaging protocol: Real-time ultrasound of the abdomen with image documentation. Examination was focused on the right upper quadrant. COMPARISON: GALLBLADDER US 12/28/2018 9:[address] ABD/PEL W/IV CONTRAST ONLY 04/21/2019 11:01:39 PM FINDINGS: Liver: Mildly echogenic, suggesting fatty infiltration. Gallbladder: Cholelithiasis and mild gallbladder distention without gallbladder wall thickening or pericholecystic fluid. Common bile duct: Dilated to approximately 1 cm. In No stones. Pancreas: Suboptimal visualized. Right kidney: No mass. No definite stones. No hydronephrosis. IMPRESSION: 1. Cholelithiasis without sonographic evidence of acute cholecystitis. 2. Common bile duct dilatation to approximately 1 cm. Correlate with LFTs and, if clinically indicated, ERCP or MRCP. 3. Fatty liver. Electronically signed by: Michael Rodgers On 04/22/2019 01:16:03 AM
--- NOTE | 2019-04-22 01:46 | HPEPDOC ---
General Date of Admission April 22, 2019 at 00:50 Date of Service: April 22, 2019 Chief Complaint The patient is a 64-year-old female admitted with a reason for visit of Pancreatitis. Source: Patient, RN/, Old records History of Present Illness Ms. Juárez is a 64 years old obese diabetic woman who presented to ER with acute onset of nausea, vomiting and upper abdominal pain for one day. Pain radiated to the back. Pt denies fever, chills, diarrhea, dysuria or previous hx/ o pancreatitis or gallstone. In the ER, CT abd showed acute uncomplicated pancreatitis. US showed c holelithiasis without cholecystitis and dilated CBD at 1 cm. Pt was hemodynamically stable, with sinus tachycardia at rate 110-130/min. WBC 14K, Lipase 18K, BG 453, HbA1C 12.1, TB 2.9, DB 2.2, and moderately elevated transaminases and Alk Phos. Home Medications Scheduled Alogliptin Benzoate (Alogliptin) 25 Mg Tab, 25 MG PO DAILY, (Reported) Docusate Sodium (Docusate Sodium) 100 Mg Cap, 200 MG PO DAILY, (Reported) Glyburide (Glyburide) 5 Mg Tab, 20 MG PO DAILY, (Reported) Lisinopril (Lisinopril) 40 Mg Tablet, 40 MG PO DAILY, (Reported) Pantoprazole Sodium (Pantoprazole Sodium) 40 Mg Tablet.dr, 40 MG PO DAILY, ( Reported) Allergies Coded Allergies: pseudoephedrine (Verified Allergy, Intermediate, rash, 03/30/19) codeine (Verified Adverse Reaction, Intermediate, vomiting, 03/30/19) Past Medical History Medical History Non-insulin dependent DM-2, Obesity, GERD, Fatty Liver, Diverticulitis Surgical History Left Ovarian Tumor removal Family History Significant Family History: No pertinent family hx Social History * Smoker: Denies Alcohol: Denies Drugs: denies A-FIB/CHADSVASC A-FIB History Current/History of A-Fib/PAF?: No Review of Systems Constitutional: Denies: Chills, Fever Eyes: Denies: Pain ENT: Denies: Head Aches Skin: Denies: Rash, Lesions Pulmonary: Denies: Dyspnea, Cough Cardiovascular: Denies: Chest Pain, Palpitations, Edema Gastrointestinal: Reports: Nausea, Vomiting, Abdominal Pain; Denies: Diarrhea, Constipation Genitourinary: Denies: Dysuria, Frequency Musculoskeletal: Reports: Back Pain; Denies: Neck Pain Neurological: Reports: Weakness; Denies: Numbness Psych: Reports: Mood Normal, Anxiety Physical Examination General Exam: Positive: Alert, Cooperative, No Acute Distress Eye Exam: Positive: PERRLA ENT Exam: Positive: Atraumatic Neck Exam: Positive: Supple; Negative: JVD Chest Exam: Positive: Clear to auscultation, Normal air movement Heart Exam: Positive: Tachycardic, Regular Rhythm Abdomen Exam: Positive: Normal bowel sounds, Soft, Tenderness Extremity Exam: Positive: Normal pulses; Negative: Edema Skin Exam: Positive: Nl turgor and temperature; Negative: Rash, Breakdown Neuro Exam: Positive: Normal Speech, Strength at 5/5 X4 ext Psych Exam: Positive: Mental status NL, Mood NL Vital Signs Vital Signs Date Time Temp Pulse Resp B/P (MAP) Pulse Ox O2 Delivery O2 Flow Rate FiO2 04/22/19 01:23 97.8 114 22 142/83 (102) 100 Room Air Laboratory Data Labs 24H Laboratory Tests 2 04/21/19 21:14: Urine Color YELLOW, Urine Appearance HAZY, Urine pH 5.0, Urine Specific [place] 1.027, Urine Protein 1+H, Urine Glucose (UA) 3+H, Urine Ketones TRACEH, Urine Blood NEGATIVE, Urine Nitrite NEGATIVE, Urine Bilirubin NEGATIVE, Urine Urobilinogen 4.0H, Urine Leukocyte Esterase NEGATIVE, Urine WBC (Auto) 3, Urine RBC (Auto) 1, Urine Hyaline Casts (Auto) 0, Urine Bacteria (Auto) NEGATIVE, Urine Squamous Epithelial Cells 3, Urine Sperm (Auto) 04/21/19 21:15: Immature Granulocyte % (Auto) 0.4, White Blood Count 14.1H, Red Blood Count 4.72, Hemoglobin 15.0, Hematocrit 42.8, Mean Corpuscular Volume 90.7, Mean Corpuscular Hemoglobin 31.8, Mean Corpuscular Hemoglobin Concent 35.0, Red Cell Distribution Width 12.4, Platelet Count 412, Neutrophils (%) (Auto) 87.9H, Lymphocytes (%) (Auto) 5.5L, Monocytes (%) (Auto) 6.1H, Eosinophils (%) (Auto) 0.0, Basophils (%) (Auto) 0.1, Neutrophils # (Auto) 12.4H, Lymphocytes # (Auto) 0.8L, Monocytes # (Auto) 0.9H, Eosinophils # (Auto) 0.0, Basophils # (Auto) 0.0, Nucleated Red Blood Cells % (auto) 0.0, Anion Gap 12, Glomerular Filtration Rate 56.0, Estimated Mean Plasma Glucose 301H, Hemoglobin A1c 12.1, Osmolality 307H, Calcium Level 9.8, Phosphorus Level 4.4, Magnesium Level 1.8, Aspartate Amino Transf (AST/SGOT) 301H, Alanine Aminotransferase (ALT/SGPT) 192H, Alkaline Phosphatase 327H, Total Bilirubin 2.9H, Direct Bilirubin 2.2H, Total Protein 7.0, Albumin 3.5, Albumin/Globulin Ratio 1.00, Lipase 28912J, B-Hydroxybutyrate 11.55H CBC/BMP Laboratory Tests 04/21/19 21:15 Red Blood Count 4.72, Mean Corpuscular Volume 90.7, Mean Corpuscular Hemoglobin 31.8, Mean Corpuscular Hemoglobin Concent 35.0, Red Cell Distribution Width 12.4, Neutrophils (%) (Auto) 87.9 H, Lymphocytes (%) (Auto) 5.5 L, Monocytes (%) (Auto) 6.1 H, Eosinophils (%) (Auto) 0.0, Basophils (%) (Auto) 0.1, Neutrophils # (Auto) 12.4 H, Lymphocytes # (Auto) 0.8 L, Monocytes # (Auto) 0.9 H, Eosinophils # (Auto) 0.0, Basophils # (Auto) 0.0 Echocardiogram Upper abdomen Assessment/Plan Acute Gallstone Pancreatitis with Dilated CBD - Admit to inpatient - NPO, IV Fluid, electrolyte monitoring and supplement - PRN Morphine and Zofran for symptom management - MRCP in the morning, followed by ERCP if indicated - Cholecystectomy after pancreatitis is resolved - No indication for antibiotic use at this time Uncontrolled DM-2 - Hold oral agents - Start on low dose Levemir and SSI Plan / VTE VTE Prophylaxis Ordered?: Yes Plan Anticipated Discharge: Home MARTA BENNETT MD April 22, 2019 01:46
[2019-04-22] MEDS: MORPHINE 4 MG/ML 1ML VIAL/SYRINGE (J2270) IV PRN ×2 (03:02→08:40)
[2019-04-22] MEDS ORDERED: ONDANSETRON 4MG/2ML VIAL (J2405) IV PRN (05:00)
[2019-04-22] MEDS ORDERED: PERCOCET 5MG/325MG TAB PO PRN ×3 (05:00→23:00)
[2019-04-22 06:09] LABS: BASO % 0.1 % (0.0-1.0); EOS % 0.1 % (0.0-3.0); HEMATOCRIT 44.9 % (36.0-47.0); LYMPH # 0.8 10^3/uL (1.5-4.5); LYMPH % 5.6 % (24.0-44.0); MEAN CORPUSCULAR HEMOGLOBIN 31.8 pg (27.0-33.0); MEAN CORPUSCULAR HGB CONC 33.4 g/dl (32.0-36.5); MEAN CORPUSCULAR VOLUME 95.1 fl (80.0-96.0); MONO % 6.5 % (0.0-5.0); NEUTROPHILS % 87.3 % (36.0-66.0); RED BLOOD COUNT 4.72 10^6/uL (4.00-5.40); WHITE BLOOD COUNT 14.8 10^3/uL (4.0-10.0)
[2019-04-22 06:25] LABS: INR 1.08; PROTHROMBIN TIME 14.1 SECONDS (12.1-14.4)
[2019-04-22 06:26] LABS: PARTIAL THROMBOPLASTIN TIME 22.1 SECONDS (25.4-37.6)
[2019-04-22 06:39] LABS: ALBUMIN 3.3 GM/DL (3.2-5.2); ALT/SGPT 242 U/L (12-78); BILIRUBIN,TOTAL 4.2 MG/DL (0.2-1.0); BLOOD UREA NITROGEN 19 MG/DL (7-18); CALCIUM LEVEL 9.4 MG/DL (8.8-10.2); CARBON DIOXIDE LEVEL 21 MEQ/L (21-32); CHLORIDE LEVEL 104 MEQ/L (98-107); CREATININE FOR GFR 0.96 MG/DL (0.55-1.30); GLOMERULAR FILTRATION RATE > 60.0 (>45); GLUCOSE, FASTING 369 MG/DL (70-100); LIPASE 10236 U/L (73-393); MAGNESIUM LEVEL 1.8 MG/DL (1.8-2.4); POTASSIUM SERUM 5.3 MEQ/L (3.5-5.1); SODIUM LEVEL 134 MEQ/L (136-145); TOTAL PROTEIN 6.7 GM/DL (6.4-8.2)
[2019-04-22 06:50] LABS: PLATELET COUNT, AUTOMATED 344 10^3/uL (150-450)
[2019-04-22] MEDS: HumaLOG INSULIN (NovoLOG) PER UNIT SC SCH ×4 (06:50→18:07)
[2019-04-22] MEDS: NS 1,000 ML IV SCH ×2 (08:16→13:38)
[2019-04-22] MEDS: PANTOPRAZOLE 40MG INJ (PROTONIX) (C9113) IV SCH (08:38)
[2019-04-22] MEDS: LEVEMIR (INSULIN DETEMIR) 1 UNITS/0.01ML SC SCH ×2 (08:39→20:45)
[2019-04-22] MEDS: HEPARIN SOD (PORCINE) 5000 UNITS/ML VIAL SC SCH ×2 (08:39→20:45)
--- NOTE | 2019-04-22 09:07 | REP ---
Portable chest x-ray: Single view. History: Question infiltrate. Comparison study: March 30, 2019. Findings: There is a linear opacity in the left base consistent with plate-like atelectasis. This is new from the prior study. Lung cheng are otherwise clear. Pleural angles are sharp. Cardiomediastinal silhouette is unremarkable and unchanged. No bony abnormality is seen. Impression: Plate-like atelectasis left base. Otherwise no acute disease. Electronically Signed by Stan Magana MD 04/22/2019 08:58 A
[2019-04-22 09:25] LABS: TROPONIN I < 0.02 NG/ML (< 0.10)
[2019-04-22] MEDS ORDERED: MORPHINE 4 MG/ML 1ML VIAL/SYRINGE (J2270) IV ONE ×3 (11:30→14:00)
[2019-04-22] MEDS ORDERED: MORPHINE 4 MG/ML 1ML VIAL/SYRINGE (J2270) IV PRN ×3 (12:00→21:30)
--- NOTE | 2019-04-22 15:18 | REP ---
MRCP: Limited study. History: Abdomen pain. Dilated CBD. Pancreatitis. Comparison CT study is from April 21, 2019. Comparison sonography is from April 22, 2019. Technique: Coronal T2-weighted imaging was acquired. At this point, the patient was unable to continue. The examination is therefore quite limited. Findings: Multiple fairly large stones are noted in the gallbladder lumen. There is a peripancreatic edema pattern which is moderate to marked consistent with acute pancreatitis. No focal fluid collection is appreciated. The common bile duct is dilated to a caliber of 11 mm on coronal images. There is a triangular-shaped 7 mm calculus in the distal choledochus. The main pancreatic duct is normal in caliber. The gallbladder appears somewhat distended. Impression: Cholelithiasis and choledocholithiasis are observed. A single distal common bile duct calculus is seen. There is moderate to marked peripancreatic edema consistent with acute pancreatitis. The gallbladder is somewhat distended and contains stones. Limited study as above. Electronically Signed by Stan Magana MD 04/22/2019 03:57 P
[2019-04-22 15:29] LABS: ALBUMIN 2.8 GM/DL (3.2-5.2); BILIRUBIN,TOTAL 5.4 MG/DL (0.2-1.0); CALCIUM LEVEL 8.3 MG/DL (8.8-10.2); CREATININE FOR GFR 1.56 MG/DL (0.55-1.30); GLOMERULAR FILTRATION RATE 35.5 (>45); POTASSIUM SERUM 3.6 MEQ/L (3.5-5.1); TOTAL PROTEIN 6.5 GM/DL (6.4-8.2)
--- NOTE | 2019-04-22 15:40 | IPNPDOC ---
Text Note Date of Service The patient was seen on 04/22/19. NOTE SUBJECTIVE: Ms. Juárez is still in some pain on bedside rounds this morning. She states the pain in her abdomen is not much better. She denies CP or SOB, no cough or fevers. Admits to some nausea but no vomiting. She is requesting food and water OBJECTIVE PHYSICAL EXAMINATION: VITAL SIGNS: Please see below. GENERAL: She is laying in bed, on her side, with her hands on her abdomen, she appears uncomfortable from abdominal pain HEENT: Moist mucus membranes, EOMI, no JVD CARDIOVASCULAR: Normal s1 and s2, no murmurs, rubs or gallops appreciated RESPIRATORY: cta b/l, no rales, rhonchi or wheezing ABDOMINAL: obese, tender to palpation in epigastric area, no rebound, some guarding with palpation of epigastric area, nabsx4, no distension EXTREMITIES: No clubbing cyanosis or edema NEUROLOGICAL: no focal deficits appreciated PSYCHOLOGICAL: affect appropriate LABORATORY DATA, MICROBIOLOGY: Please see below. DVT prophylaxis ordered?: Heparin ASSESSMENT AND PLAN: This is a 64 y/o female who presented with abdominal pain and found to have acute pancreatitis, secondary to choledocholithiasis. PROBLEMS: 1.Acute pancreatitis, secondary to choledocholithiasis -U/S GB and CT ab/pelvis showed CBD dilatation to 1 cm and biliary sludge, GI has been consulted early this AM by attending, blood cultures drawn and plan from GI is to perform ERCP tomorrow. Pt is NPO, c/w IVF, we will increase pain medications to help her with pain. C/w Zofran for nausea. She may need cholecy stectomy outpt. Pt was not receiving IVF at 7am, attending initiated aggressive IVF for pancreatitis 2. DM2 -Levemir 7 units BID, glucose is high 287 today, likely secondary to acute presentation and pain, after ERCP and resolution of pain we can see where her glucose is and tailor insulin from there. C/w SS. Disposition: Pending ERCP tomorrow, pain control VS,Fishbone, I+O VS, Fishbone, I+O Laboratory Tests 04/21/19 21:15 Red Blood Count 4.72, Mean Corpuscular Volume 90.7, Mean Corpuscular Hemoglobin 31.8, Mean Corpuscular Hemoglobin Concent 35.0, Red Cell Distribution Width 12.4, Neutrophils (%) (Auto) 87.9 H, Lymphocytes (%) (Auto) 5.5 L, Monocytes (%) (Auto) 6.1 H, Eosinophils (%) (Auto) 0.0, Basophils (%) (Auto) 0.1, Neutrophils # (Auto) 12.4 H, Lymphocytes # (Auto) 0.8 L, Monocytes # (Auto) 0.9 H, Eosinophils # (Auto) 0.0, Basophils # (Auto) 0.0 04/22/19 05:54 Red Blood Count 4.72, Mean Corpuscular Volume 95.1, Mean Corpuscular Hemoglobin 31.8, Mean Corpuscular Hemoglobin Concent 33.4, Red Cell Distribution Width 12.6, Neutrophils (%) (Auto) 87.3 H, Lymphocytes (%) (Auto) 5.6 L, Monocytes (%) (Auto) 6.5 H, Eosinophils (%) (Auto) 0.1, Basophils (%) (Auto) 0.1, Neutrophils # (Auto) 13.0 H, Lymphocytes # (Auto) 0.8 L, Monocytes # (Auto) 1.0 H, Eosinophils # (Auto) 0.0, Basophils # (Auto) 0.0 Vital Signs Date Time Temp Pulse Resp B/P (MAP) Pulse Ox O2 Delivery O2 Flow Rate FiO2 04/22/19 14:00 97.4 116 19 125/71 (89) 95 04/22/19 01:23 Room Air I&O- Last 24 Hours up to 6 AM 04/22/19 06:00 Intake Total 2000 ml Output Total 0 ml Balance 2000 ml GME ATTESTATION E ATTESTATION My faculty preceptor for this patient encounter was physically present during the encounter and was fully available. All aspects of the patient interview, examination, medical decision making process, and medical care plan development were reviewed and approved by the faculty preceptor. The faculty preceptor is aware and concurs with the plan as stated in the body of this note and will attest to such by his/her cosignature. ATTENDING NOTE I saw and evaluated the patient. I agree with the findings and plan of care as documented in the resident's note Patient QSOFA 0, +SIRS 2' to pancreatitis, no evidence of necrosis on CT no indication for Abx at this time, will check blood culture and initiate aggressive fluids for pancreatitis. Did call GI and inform them of need for ERCP which tehy are agreeable to perform but stated not likely today. Certain if the stone does not spontaneously pass the patient is at risk of developing cholangitis. MARIA D NEVILLE DO April 22, 2019 15:40 TYLER BURNETTE MD Apr 24, 2019 12:28
[2019-04-22] MEDS ORDERED: NALOXONE INJ 0.4 MG/1 ML VIAL (J2310) IV STA (18:21)
[2019-04-22 18:45] LABS: ABG BASE EXCESS -13.2 (-2.0-2.0); ABG HCO3 11.4 MEQ/L (22.0-26.0); ABG O2 SATURATION 94.4 % (95.0-99.0); ABG PARTIAL PRESSURE CO2 24.5 mmHg (35.0-45.0); ABG PARTIAL PRESSURE O2 77.4 mmHg (75.0-100.0); ABG STANDARD HCO3 14.4 MEQ/L (22.0-26.0); ABG TOTAL CO2 12.1 MEQ/L (23.0-31.0); ABG pH (ARTERIAL) 7.284 UNITS (7.350-7.450)
[2019-04-22] MEDS: PIPERACILLIN/TAZOBACTAM SOD 3.375 GM in D5W MINI-BAG PLUS 50 ML IV SCH (19:15)
[2019-04-22] MEDS: LR 1,000 ML IV SCH (20:21)
[2019-04-22] MEDS ORDERED: fentaNYL 100 MCG/2 ML INJECTION (J3010) As Ordered ONE (20:30)
[2019-04-22] MEDS ORDERED: dexameTHASONE 4 MG/ML 1ML VIAL (J1100) As Ordered ONE (20:31)
[2019-04-22] MEDS ORDERED: PROPOFOL 200 MG/20 ML VIAL As Ordered ONE (20:31)
[2019-04-22] MEDS ORDERED: ROCURONIUM BROMIDE 50 MG/5 ML VIAL As Ordered ONE (20:31)
[2019-04-22] MEDS ORDERED: MIDAZOLAM INJ 2 MG/2 ML VIAL (J2250) As Ordered ONE (20:31)
[2019-04-22] MEDS ORDERED: ONDANSETRON 4MG/2ML VIAL (J2405) As Ordered ONE (20:31)
[2019-04-22 20:55] LABS: BLOOD UREA NITROGEN 23 MG/DL (7-18); CALCIUM LEVEL 7.6 MG/DL (8.8-10.2); CARBON DIOXIDE LEVEL 15 MEQ/L (21-32); CHLORIDE LEVEL 112 MEQ/L (98-107); CREATININE FOR GFR 2.07 MG/DL (0.55-1.30); GLOMERULAR FILTRATION RATE 25.6 (>45); GLUCOSE, FASTING 174 MG/DL (70-100); POTASSIUM SERUM 3.5 MEQ/L (3.5-5.1); SODIUM LEVEL 144 MEQ/L (136-145); TRIGLYCERIDES LEVEL 147 MG/DL (<150); TROPONIN I < 0.02 NG/ML (< 0.10)
--- NOTE | 2019-04-22 20:58 | CR ---
DATE OF CONSULTATION: 04/22/2019 Patient is a 64-year-old female with a history of diabetes, gastroesophageal reflux disease (GERD), and obesity, who presented with complaints of upper abdominal pain, nausea, and vomiting for the past day with pain radiating to her back. The patient had denied any significant fevers or chills. No diarrhea. No dysuria. She had occasional coughing that was nonproductive. She denied any history of breathing issues in the past. No history of obstructive sleep apnea or other lung conditions. In the emergency department (ED), initially patient was afebrile. She was tachycardiac, mildly hypertensive. Was saturating well on room air. She was given intravenous (IV) fluids with normal saline with 2 liters bolused in the ED was started on maintenance fluids at 175 mL an hour. The patient was also given Zofran for her nausea and pain initially with Percocet. Also morphine and Toradol. The patient had abdominal imaging done, which showed evidence of acute pancreatitis, and on her abdominal MRI there was evidence of cholelithiasis and choledocholithiasis with a distal common bile duct calculus noted. During the day, she continued to report significant abdominal pain, which was not improving despite pain medications. She had received Percocet and then later morphine earlier in the afternoon. Early in the evening, the patient began to appear more lethargic and difficult to arouse by nursing. She was also becoming hypotensive with her blood pressure of 82/48. She was given 0.2 mg of Narcan for possible opioid overdose contributing to her symptoms. She was also started on normal saline bolus with 3 liters ordered. At the time of examination, she had received 1.5 liters, and her blood pressure has responded to 90s systolic. The patient did appear to be more awake. She was responsive and answering questions appropriately but confused at times and drowsy. She denied any chest pain. No shortness of breath. No coughing. She did continue to have abdominal pain in her upper abdomen region, radiating to her back. The patient was also ordered for antibiotics, and IV Zosyn was running. PAST MEDICAL HISTORY: 1. Diabetes. 2. Obesity. 3. GERD. 4. Fatty liver. 5. Diverticulitis. PAST SURGICAL HISTORY: 1. Left ovarian tumor removal. 2. Left salpingectomy and oophorectomy ALLERGIES: PSEUDOEPHEDRINE and CODEINE. HOME MEDICATIONS: Alogliptin, Colace, glyburide, lisinopril, and pantoprazole. FAMILY HISTORY: Noncontributory. SOCIAL HISTORY: Denies smoking history. No alcohol use. PHYSICAL EXAMINATION: Temperature 97.0, pulse 108, respirations 30, blood pressure was 82/48, oxygen saturation 95% on room air. GENERAL: The patient is an obese female. Is somewhat drowsy but responding and following commands. Not in acute respiratory distress. HEENT: Normocephalic, atraumatic. Mucous membranes are dry, scleral icterus. Pupils are reactive to light bilaterally. Unable to appreciate any jugular venous distention (JVD). Neck is supple. Trachea is midline. CARDIOVASCULAR: Tachycardic, regular rate. Normal S1, S2. No murmurs appreciated. LUNGS: Clear to auscultation bilaterally anteriorly. ABDOMEN: Obese. Tender to palpation in the epigastric and right upper quadrant regions. EXTREMITIES: No lower extremity edema noted bilaterally. LABORATORY DATA: WBC 14.8, hemoglobin 15.0, platelets 344. Chemistry: Sodium 148, potassium 3.6, chloride 109, bicarbonate 17, BUN 21, creatinine 1.56, glucose is 224, calcium is 8.3. Total bilirubin 5.4, AST 355, ALT 240, alkaline phosphatase 315, albumin 2.8. Lipase 10,236. Hemoglobin A1c 12.1. Blood gas: ABG 7.284, pCO2 of 24.5, pO2 of 77.4. IMAGING: Chest x-ray shows atelectasis in the left base. No focal opacities or pleural effusions. Abdominal MRI showed large stones in the gallbladder lumen with somewhat distended gallbladder. There is cholelithiasis and choledocholithiasis with a distal common bile duct stone seen, and the common bile duct is dilated to 1.1 cm. There is also evidence of acute pancreatitis with peripancreatic edema. ASSESSMENT AND PLAN: Ms. Juárez is a 64-year-old female with a past medical history of diabetes, fatty liver, gastroesophageal reflux disease (GERD), who presented with complaints of abdominal pain, nausea, and vomiting with pain radiating to her back. The patient was found to have acute pancreatitis, likely secondary to acute choledocholithiasis with possible acute cholangitis. The patient was given normal saline, IV fluids, and boluses as well as morphine and Percocet for pain control; however, she continued to have persistent abdominal pain, and early this evening patient became hypotensive and more lethargic. Patient with evidence of sepsis, possibly acute cholangitis or cholecystitis. She has increasing liver function tests (LFTs) and bilirubin as well as evidence of leukocytosis. She was given an additional 3 liters of normal saline bolus, which she is finishing up the second liter of the bolus and is going to get an additional 1 liter. The patient was also started on Zosyn for broad-spectrum antibiotics. 1. Would finish the 3-liter normal saline bolus and then continue with IV fluid with lactated Ringer's at 250 mL an hour for her acute pancreatitis. The patient's BUN and creatinine have been increasing, and her hematocrit has stayed high, suggesting that she has not received adequate fluid hydration. She has been admitted for less than 24 hours at this time, so can continue with aggressive fluid hydration at this time and will continue to reassess. 2. Continue with Zosyn for broad-spectrum antibiotics. Her blood cultures are pending. 3 The patient's arterial blood gas (ABG) shows metabolic acidosis. Will check a lactic acid level and continue to monitor her bicarbonate and her pH. 4. Will place a [place] to monitor her urine output with a goal of more than 0.5 mL/kg per hour of her urine output. 5. Will continue to monitor electrolytes and replete as needed. 6. Continue to trend her LFTs. 7. Will check a triglyceride level and continue to monitor her lipase. 8. Will change her fingerstick glucose to every 2 hours and keep patient nothing by mouth and will give her insulin sliding scale coverage as needed. 9. Continue with pain control with morphine. Would consider changing to fentanyl given her acute kidney injury (RIK) and if she has worsening renal function. 10. Appreciate gastrointestinal (GI) consult and recommendations. Patient is planned for possible endoscopic retrograde cholangiopancreatography (ERCP) given her possibly acute choledocholithiasis with possible cholangitis causing her sepsis. 11. Deep vein thrombosis (DVT) prophylaxis with Protonix. 12. Full code. TOTAL CRITICAL CARE TIME SPENT: Not including any procedures, approximately 1 hour and 30 minutes. [facility]
--- NOTE | 2019-04-22 22:27 | CR ---
DATE OF CONSULTATION: 04/22/2019 This is a 64-year-old white female who is being seen by GI for evaluation of gallstone pancreatitis. The patient apparently presented to the emergency room with sudden onset of nausea, vomiting and upper abdominal pain, which apparently started the day of admission. Pain has been radiating to her back. She has no previous history of abdominal pain episodes or pancreatitis. The patient has medical problems including diabetes mellitus type 2, obesity, reflux, fatty liver, history of diverticulitis. In the emergency room, the patient was found to have on ultrasound cholelithiasis and a dilated common bile duct at 1 cm. MEDICATIONS AT HOME: Include Colace, glyburide, lisinopril and pantoprazole. ALLERGIES: Allergies to PSEUDOEPHEDRINE and CODEINE. PAST MEDICAL HISTORY: As noted above. SURGICAL HISTORY: Left ovarian tumor removed. FAMILY HISTORY: Noncontributory. SOCIAL HISTORY: Cigarettes, alcohol, drugs: Patient denies. REVIEW OF SYSTEMS: 11-point review of systems noncontributory to the above problem. General: She is a well-developed, well-nourished white female in acute distress due to abdominal pain. Abdomen: Soft, diffusely tender. No hepatosplenomegaly. Bowel sounds were positive. Laboratory studies on admission showed a white count of 14,000, hemoglobin and hematocrit of 15 and 42. On 04/22/2019, the patient's white count was 14.8, hemoglobin was 15 and hematocrit was 44.9, platelets were normal. Coagulation profile showed an INR of 1.08. Toxicology studies: Beta-hydroxybutyrate was elevated. IMAGING STUDIES: Ultrasound of the gallbladder showed cholelithiasis. The patient has acute cholecystitis without evidence of acute cholecystitis, common bile duct is slightly dilated to 1 cm. The patient also had an abdominal CT exam, which showed: 1. Diffuse decrease in density of the liver consistent with fatty liver. 2. Sludge in the gallbladder and poorly calcified calculi. 3. There was peripancreatic inflammation consistent with acute pancreatitis. The patient has also had an magnetic resonance cholangiopancreatography (MRCP), which showed gallstones in the gallbladder and a single common bile duct stone. Laboratory studies on admission, including chemistry showed a total bilirubin of 2.9 on admission, AST was 301, ALT was 192, alkaline phosphatase was 327, and lipase was 18,546. Subsequent studies have shown bilirubin to be now 5.4 on 04/22/2019, elevated from 4.2. The patient's AST has risen to 355, ALT dropped slightly and alkaline phosphatase is slightly elevated at 315. ANALYSIS: Gallstone pancreatitis with a positive MRCP showing choledocholithiasis with a single stone. PLAN: Plan will be to set the patient up for an endoscopic retrograde cholangiopancreatography (ERCP), which was initially planned for tomorrow; however, the patient's abdominal pain is persistent, and she seems to be now hypotensive, which could be secondary either to being behind in fluids versus chronic use of morphine to control her pain versus low grade sepsis. Plan will be to move the ERCP ahead in an urgent fashion to perform the ERCP tonight and try to decompress the biliary tract and possibly place a stent for bile duct decompression. This might help control some of her pain symptoms and decrease any chance for ascending cholangitis. The patient has been started on Zosyn IV and increased IV fluids have been started. The patient has been seen in consultation. She has signed informed consent and the risks have been explained to her as best she can understand since the patient was in pain.
[2019-04-23] VITALS (53 sets, daily range): BP systolic 23–178; BP diastolic 20–75
[2019-04-23] MEDS: PIPERACILLIN/TAZOBACTAM SOD 3.375 GM in D5W MINI-BAG PLUS 50 ML IV SCH ×3 (00:12→14:00)
[2019-04-23] MEDS: HumaLOG INSULIN (NovoLOG) PER UNIT SC SCH ×3 (00:13→09:05)
[2019-04-23] MEDS: LR 1,000 ML IV SCH (00:13)
[2019-04-23 02:08] LABS: ABG BASE EXCESS -25.3 (-2.0-2.0); ABG HCO3 10.5 MEQ/L (22.0-26.0); ABG O2 SATURATION 73.7 % (95.0-99.0); ABG STANDARD HCO3 7.1 MEQ/L (22.0-26.0); ABG TOTAL CO2 12.6 MEQ/L (23.0-31.0)
[2019-04-23 02:09] LABS: ABG PARTIAL PRESSURE CO2 69.7 mmHg (35.0-45.0); ABG pH (ARTERIAL) 6.794 UNITS (7.350-7.450)
[2019-04-23] MEDS ORDERED: MIDAZOLAM INJ 2 MG/2 ML VIAL (J2250) As Ordered ONE (02:11)
[2019-04-23] MEDS ORDERED: ETOMIDATE INJ 20MG/10ML VIAL As Ordered ONE (02:14)
[2019-04-23] MEDS ORDERED: MIDAZOLAM INJ 2 MG/2 ML VIAL (J2250) IV STA (02:15)
[2019-04-23] MEDS ORDERED: SUCCINYLCHOLINE INJ 200 MG/10 ML VIAL (J0330) IV STA (02:15)
[2019-04-23] MEDS ORDERED: SUCCINYLCHOLINE INJ 200 MG/10 ML VIAL (J0330) As Ordered ONE (02:16)
[2019-04-23] MEDS ORDERED: SODIUM BICARBONATE 8.4% INJ 50 ML SYRINGE As Ordered ONE ×2 (02:27→02:55)
[2019-04-23] MEDS ORDERED: PROPOFOL 1,000 MG/100 ML VIAL As Ordered ONE (02:35)
--- NOTE | 2019-04-23 02:41 | REPVR ---
EXAM: XR Chest, 1 View EXAM DATE/TIME: 04/23/2019 1:22 AM CLINICAL HISTORY: 64 years old, female; Signs and symptoms; Other: SOB; Additional info: Short of breath TECHNIQUE: Imaging protocol: XR of the chest, 1 view. COMPARISON: CR PORTABLE CHEST X-RAY 04/22/2019 7:51 AM FINDINGS: Cardiac silhouette is within normal limits. Atherosclerotic changes of the aortic arch. Mild elevation of left hemidiaphragm, similar to previous examination. Aerated lungs are clear with no focal areas of consolidation, pleural effusion or overt failure. IMPRESSION: Examination limited by portable technique. No acute pulmonary process. Electronically signed by: Margarito Barahona On 04/23/2019 02:41:37 AM
[2019-04-23] MEDS ORDERED: NOREPINEPHRINE 4 MG/4 ML AMP As Ordered ONE (02:46)
--- NOTE | 2019-04-23 02:54 | IPNPDOC ---
Text Note Date of Service The patient was seen on 04/23/19. NOTE Procedure Note Procedure Name: Rapid Sequence Intubation Indication: Severe hypoxia Pt was ambu bagged while preparing for intubation. (O2 sat was 70s% in 100% FiO2. CXR done earlier had shown only small left pleural effusion.) CPR was also initiated during this time due to lack of pulse. Versed 4mg IVP followed by Succinyl Choline 100 mg IVP were administered as pt was noted to be resisting when I tried to inspect oral cavity. Trachea was easily identified and quickly i ntubated with 7.5 ETT without difficulty. Capnography confirmation was positive. O2 sat improved to 100% immediately. VS,Fishbone, I+O VS, Fishbone, I+O Laboratory Tests 04/22/19 05:54 Red Blood Count 4.72, Mean Corpuscular Volume 95.1, Mean Corpuscular Hemoglobin 31.8, Mean Corpuscular Hemoglobin Concent 33.4, Red Cell Distribution Width 12.6, Neutrophils (%) (Auto) 87.3 H, Lymphocytes (%) (Auto) 5.6 L, Monocytes (%) (Auto) 6.5 H, Eosinophils (%) (Auto) 0.1, Basophils (%) (Auto) 0.1, Neutrophils # (Auto) 13.0 H, Lymphocytes # (Auto) 0.8 L, Monocytes # (Auto) 1.0 H, Eosinophils # (Auto) 0.0, Basophils # (Auto) 0.0 04/22/19 14:52 Calcium Level 8.3 L, Aspartate Amino Transf (AST/SGOT) 355 H, Alanine Aminotransferase (ALT/SGPT) 240 H, Alkaline Phosphatase 315 H, Total Bilirubin 5.4 H, Total Protein 6.5, Albumin 2.8 L 04/22/19 20:11 Calcium Level 7.6 L Vital Signs Date Time Temp Pulse Resp B/P (MAP) Pulse Ox O2 Delivery O2 Flow Rate FiO2 04/23/19 01:00 134 30 125/59 (81) 88 4.0 04/23/19 00:00 97.2 04/22/19 01:23 Room Air I&O- Last 24 Hours up to 6 AM 04/23/19 06:00 Intake Total 4150 ml Output Total 775 ml Balance 3375 ml MARTA BENNETT MD April 23, 2019 02:54
[2019-04-23] MEDS: NOREPINEPHRINE BITARTRATE 8 MG in D5W 492 ML IV SCH ×3 (03:00→11:45)
--- NOTE | 2019-04-23 03:00 | REPVR ---
EXAM: XR Chest, 1 View EXAM DATE/TIME: 04/23/2019 2:53 AM CLINICAL HISTORY: 64 years old, female; Device placement; Other: Rule out air; Additional info: Post-intubation TECHNIQUE: Imaging protocol: XR of the chest, 1 view. COMPARISON: CR PORTABLE CHEST X-RAY 04/23/2019 1:09 AM FINDINGS: Cardiac silhouette is within normal limits. Lungs are grossly clear with no focal areas of consolidation, pleural effusion or overt failure. There is endotracheal tube is present with the tip 4.8 cm above the prashant. Nasogastric tube is present with the tip extending to the gastric body. No evidence of pneumothorax. IMPRESSION: No acute pulmonary process. Support hardware as described above. Electronically signed by: Margarito Barahona On 04/23/2019 02:59:54 AM
[2019-04-23 03:51] LABS: ABG BASE EXCESS -11.8 (-2.0-2.0); ABG O2 SATURATION 86.3 % (95.0-99.0); ABG STANDARD HCO3 15.1 MEQ/L (22.0-26.0); ABG TOTAL CO2 21.1 MEQ/L (23.0-31.0)
[2019-04-23 03:52] LABS: ABG PARTIAL PRESSURE CO2 66.5 mmHg (35.0-45.0); ABG pH (ARTERIAL) 7.074 UNITS (7.350-7.450)
[2019-04-23] MEDS ORDERED: PROPOFOL 1,000 MG in APPROPRIATE DILUENT 1 EA IV SCH (04:00)
[2019-04-23] MEDS: SODIUM BICARBONATE 150 MEQ in D5W 1,000 ML IV SCH ×2 (04:15→09:05)
[2019-04-23] MEDS: VASOPRESSIN INJ 20 UNITS in NS 499 ML IV SCH ×2 (04:15→13:30)
[2019-04-23] MEDS ORDERED: SODIUM BICARBONATE 8.4% INJ 50 ML SYRINGE IV STA ×3 (04:25→10:21)
[2019-04-23] MEDS ORDERED: HEPARIN 1,000 UNITS/ML 10ML VIAL (FOR RADIOLOGY& DIALYSIS ONLY) IV PRN ×2 (04:45→11:00)
[2019-04-23] MEDS ORDERED: SODIUM BICARBONATE 8.4% INJ 50 ML SYRINGE ONE (05:20)
[2019-04-23] MEDS ORDERED: EPINEPHrine 1MG/10ML SYRINGE 1.5IN ONE (05:20)
[2019-04-23 05:36] LABS: HEMATOCRIT 44.8 % (36.0-47.0); HEMOGLOBIN 13.8 g/dl (12.0-15.5); MEAN CORPUSCULAR HEMOGLOBIN 32.5 pg (27.0-33.0); MEAN CORPUSCULAR HGB CONC 30.8 g/dl (32.0-36.5); MEAN CORPUSCULAR VOLUME 105.4 fl (80.0-96.0); RED BLOOD COUNT 4.25 10^6/uL (4.00-5.40); WHITE BLOOD COUNT 18.5 10^3/uL (4.0-10.0)
[2019-04-23 05:38] LABS: PLATELET COUNT, AUTOMATED 237 10^3/uL (150-450)
[2019-04-23 05:44] LABS: INR 1.96; PARTIAL THROMBOPLASTIN TIME 41.8 SECONDS (25.4-37.6); PROTHROMBIN TIME 22.7 SECONDS (12.1-14.4)
[2019-04-23 06:10] LABS: EOSINOPHILS 1 % (0-5); LYMPHOCYTES 12 % (16-52); METAMYELOCYTES 6 % (0-0); MONOCYTES 4 % (0-8); NEUTROPHILS 66 % (35-75)
[2019-04-23 06:11] LABS: PLATELET ESTIMATE NORMAL (NORMAL)
[2019-04-23 06:13] LABS: GIANT PLATELETS 1+
[2019-04-23 06:29] LABS: ALBUMIN 2.3 GM/DL (3.2-5.2); BILIRUBIN,TOTAL 6.9 MG/DL (0.2-1.0); CALCIUM LEVEL 7.3 MG/DL (8.8-10.2); CREATININE FOR GFR 3.02 MG/DL (0.55-1.30); GLOMERULAR FILTRATION RATE 16.5 (>45); POTASSIUM SERUM 4.6 MEQ/L (3.5-5.1); TOTAL PROTEIN 4.7 GM/DL (6.4-8.2)
[2019-04-23 06:39] LABS: ABG BASE EXCESS -18.8 (-2.0-2.0); ABG HCO3 10.3 MEQ/L (22.0-26.0); ABG O2 SATURATION 93.3 % (95.0-99.0); ABG PARTIAL PRESSURE CO2 35.8 mmHg (35.0-45.0); ABG PARTIAL PRESSURE O2 81.6 mmHg (75.0-100.0); ABG STANDARD HCO3 10.8 MEQ/L (22.0-26.0); ABG TOTAL CO2 11.4 MEQ/L (23.0-31.0)
[2019-04-23 06:42] LABS: ABG pH (ARTERIAL) 7.078 UNITS (7.350-7.450)
--- NOTE | 2019-04-23 07:09 | RO ---
DATE OF PROCEDURE: 04/23/2019 PROCEDURE: Femoral arterial line. INDICATION: Shock. PREPROCEDURE DIAGNOSES: Sepsis, acute pancreatitis. POSTPROCEDURE DIAGNOSES: Sepsis acute pancreatitis. ATTENDING PHYSICIAN: Dr. Rizzo CONSENT: Consent was implied due to the emergent nature of the procedure. PROCEDURE SUMMARY: A time out was performed. Full sterile technique was maintained throughout the procedure including surgical cap, mask with protective eyewear, sterile gown and sterile gloves. The right inguinal region was prepped using chlorhexidine scrub and draped in sterile fashion using a fenestrated drape. A sterile probe cover was used and the femoral artery was identified using ultrasound. Using real time out of plane guidance, the introducer needle was inserted into the femoral artery using ultrasound. Arterial blood was withdrawn. The syringe was removed and a Guidewire was advanced through the needle and into the femoral artery. The needle was exchanged over wire for an arterial catheter. The wire was removed and the catheter was secured to the skin using sutures. The patient tolerated this procedure without any hemodynamic compromise. At time of procedure completion, the catheter was connected to the environmental monitoring specialist and calibrated. Appropriate waveform and blood pressure tracing was observed. Estimated blood loss was less than 5 mL. MTDD
--- NOTE | 2019-04-23 07:10 | RO ---
DATE OF PROCEDURE: 04/23/2019 INDICATION: Shock, cardiac arrest. PREPROCEDURE DIAGNOSIS: Sepsis. POSTPROCEDURE DIAGNOSIS: Sepsis. PROCEDURE: Internal jugular central line. SURGEON: Dr. Trixie Rizzo CONSENT: The procedure was performed emergently and the permission was implied because of the emergent nature of the procedure. PROCEDURE SUMMARY: A central line insertion practices form was completed by independent observer. A time out was performed. Full sterile technique was maintained throughout the procedure, including surgical cap, mask with protective eye wear, full gown and sterile gloves. The patient was placed in Trendelenburg position. The right neck region was prepped using chlorhexidine scrub and draped in a sterile fashion using a full drape and a sterile probe cover was employed. The internal jugular vein was identified using the ultrasound. Anesthesia was achieved over the vein using 1% lidocaine. Using real time out of plane guidance, the introducer needle was inserted into the right internal jugular vein under direct ultrasound visualization. Venous blood was withdrawn. The syringe was removed and a guidewire was advanced into the introducer needle. The introducer needle was removed over the guidewire and a small incision was made at the skin surface with a scalpel and a dilator was exchanged over the guidewire. After appropriate dilation was obtained, the dilator was exchanged over the wire for a triple lumen central venous catheter. The wire was removed and the catheter was sutured in place at 17 cm. A sterile chlorhexidine impregnated dressing was placed over the catheter at the insertion site. The patient tolerated the procedure without any hemodynamic compromise. At time of procedure completion, all ports aspirated and flushed properly. A postprocedure chest x-ray is pending. [facility]
--- NOTE | 2019-04-23 08:11 | REP ---
PORTABLE CHEST X-RAY: Single view. 4:02 a.m. film. HISTORY: Central line placement. COMPARISON CHEST X-RAY: Apr 23 2019 at 2:43 a.m. FINDINGS: Endotracheal tube remains in good position at the level of proximal clavicles. An NG tube enters left upper quadrant. A right internal jugular central venous catheter has been inserted and terminates in the expected location of the superior vena cava. There is no evidence of pneumothorax. There is plate-like atelectasis in the left base and left perihilar region unchanged from most recent prior study. This is improved from the 1:15 a.m. film on this date. No definite pleural effusion. IMPRESSION: Right internal jugular central venous line in good position. No pneumothorax seen. Electronically Signed by Stan Magana MD 04/23/2019 03:51 P
--- NOTE | 2019-04-23 08:20 | RO ---
DATE OF PROCEDURE: 04/23/2019 INDICATION: Acute renal failure. PREPROCEDURE DIAGNOSES: Acute pancreatitis, acute renal failure. POSTPROCEDURE DIAGNOSES: Acute pancreatitis, acute renal failure. PROCEDURE: Hemodialysis catheter procedure. ATTENDING PHYSICIAN: Dr. Rizzo CONSENT: Consent was implied due to the emergent nature of the procedure. PROCEDURE SUMMARY: A central line insertion practices form was completed by independent observer. A period of time-out was performed. Full sterile technique was maintained throughout procedure, including surgical cap, mask, protective eyewear, sterile gown, and sterile gloves. The right inguinal region was prepped using chlorhexidine scrub and draped in sterile fashion using a fenestrated drape and a sterile probe cover was employed. The right femoral vein was identified using ultrasound. The introducer needle was inserted into the femoral vein using real time out of plane ultrasound guidance. Venous blood was withdrawn. The syringe was removed and a guidewire was advanced into the introducer needle. The introducer needle was removed over the guidewire and a small incision was made at the skin surface with a scalpel and double dilation was achieved over the guidewire. After appropriate dilation was obtained, the dilator was exchanged over wire for a dual lumen hemodialysis catheter. The wire was removed and the catheter was sutured in place. A sterile chlorhexidine impregnated dressing was placed over the catheter at the insertion site. The patient tolerated the procedure without any hemodynamic compromise. At time of procedure completion, all ports aspirated and flushed properly. Estimated blood loss was less than 5 mL. MTDD
[2019-04-23] MEDS ORDERED: CHLORHEXIDINE GLUCONATE 0.12 % 15ML UDC (PERIDEX ORAL RINSE) MT SCH (09:00)
[2019-04-23] MEDS: HEPARIN SOD (PORCINE) 5000 UNITS/ML VIAL SC SCH (09:00)
[2019-04-23] MEDS: LEVEMIR (INSULIN DETEMIR) 1 UNITS/0.01ML SC SCH (09:05)
[2019-04-23] MEDS: PANTOPRAZOLE 40MG INJ (PROTONIX) (C9113) IV SCH (09:06)
[2019-04-23] MEDS ORDERED: INSULIN IV RATE CHANGE DOCUMENTATION ML/HR XX SCH (10:15)
[2019-04-23] MEDS ORDERED: D5W/0.45% SODIUM CHLORIDE 1,000 ML IV SCH (10:30)
[2019-04-23 10:44] LABS: MAGNESIUM LEVEL 2.1 MG/DL (1.8-2.4)
[2019-04-23 10:46] LABS: ABG BASE EXCESS -15.6 (-2.0-2.0); ABG HCO3 11.3 MEQ/L (22.0-26.0); ABG O2 SATURATION 96.7 % (95.0-99.0); ABG PARTIAL PRESSURE CO2 30.6 mmHg (35.0-45.0); ABG PARTIAL PRESSURE O2 93.7 mmHg (75.0-100.0); ABG STANDARD HCO3 12.7 MEQ/L (22.0-26.0); ABG TOTAL CO2 12.3 MEQ/L (23.0-31.0)
[2019-04-23] MEDS ORDERED: SODIUM CHLORIDE 0.9% INJ 10 ML SYR IV PRN (11:00)
[2019-04-23] MEDS ORDERED: INSULIN HUMAN REGULAR 100 UNITS in NS 99 ML IV SCH (11:00)
[2019-04-23 11:05] LABS: ABG pH (ARTERIAL) 7.186 UNITS (7.350-7.450)
[2019-04-23 11:10] LABS: ACETONE/KETONE 3.19 MG/DL (<2.81)
[2019-04-23] MEDS ORDERED: ANGIOTENSIN II ACETATE 2.5 MG in NS 499 ML IV SCH (12:00)
--- NOTE | 2019-04-23 12:42 | IPNPDOC ---
Text Note Date of Service The patient was seen on 04/23/19. NOTE Overnight events: Ms. Juárez, was transferred to the ICU late last evening for hypotension despite vigorous fluid resuscitation. Overnight she was intubated and sustained CPR. She is seen on bedside rounds this morning in the ICU, she is mechanically ventilated and sedated. ROS is unobtainable as such. She is not responsive to verbal stimuli or sternal rub. OBJECTIVE PHYSICAL EXAMINATION: VITAL SIGNS: Please see below. GENERAL: She is laying in bed, intubated and sedated on her back, comfortable appearing HEENT: Moist mucus membranes, EOMI, no JVD CARDIOVASCULAR: Normal s1 and s2, no murmurs, rubs or gallops appreciated but hard to appreciated over vent sounds RESPIRATORY: cta b/l, no rales, some scattered rhonchi, no wheezing, but again hard to totally appreciated over vent sounds ABDOMINAL: obese, no rebound, some guarding with palpation of epigastric area, nabsx4, no distension EXTREMITIES: No clubbing cyanosis or edema NEUROLOGICAL:sedated PSYCHOLOGICAL: affect appropriate LABORATORY DATA, MICROBIOLOGY: Please see below. DVT prophylaxis ordered?: Heparin ASSESSMENT AND PLAN: This is a 64 y/o female who presented with abdominal pain and found to have acute pancreatitis, secondary to choledocholithiasis, transferred to the ICU due to hypotension who sustained intubation and CPR overnight. PROBLEMS: 1.Acute pancreatitis, secondary to choledocholithiasis with progression to septic shock and acute hypoxic resp failure secondary to cholangitis -She was given Narcan late last evening when she began to become lethargic with low BP, she was responsive to verbal stimuli, however she continued to become hypotensive despite aggressive fluid resuscitation and was transferred to the ICU. Overnight she was intubated and CPR was performed for lack of pulse. She has elevated LFT's demonstrative of shock liver, she is in ARF and also has increased lactic acidosis drastically to 18.1. U/S GB and CT ab/pelvis showed CBD dilatation to 1 cm and biliary sludge. Unfortunately she is too unstable for ERCP, IR/radiology have been asked to attempt bedside percutaneous biliary drain placement. Nephrology is being consulted for her ARF and plan to begin CRRT for severe lactic acidosis. She is receiving aggressive IVF and bicarb. She is unfortunately maxed out on two pressors and MAP is still only 59. Intensive care is consulted for patient, we appreciate their help. We will give 2 units FFP STAT for elevated INR., and have repeat INR pending. She is also bacteremic with GNR in blood, likely E. coli, she is being covered with Zosyn therapy. 2. DM2 -NPO, checking BS every 2 hours, coverage as needed Disposition: Unfortunately due to how ill she is, her prognosis is guarded at best. IR will attempt to place percutaneous biliary drain today. VS,Fishbone, I+O VS, Fishbone, I+O Laboratory Tests 04/22/19 14:52 Calcium Level 8.3 L, Aspartate Amino Transf (AST/SGOT) 355 H, Alanine Aminotransferase (ALT/SGPT) 240 H, Alkaline Phosphatase 315 H, Total Bilirubin 5.4 H, Total Protein 6.5, Albumin 2.8 L 04/22/19 20:11 Calcium Level 7.6 L 04/23/19 05:19 Calcium Level 7.3 L, Aspartate Amino Transf (AST/SGOT) 3214 H, Alanine Aminotransferase (ALT/SGPT) 977 H, Alkaline Phosphatase 324 H, Total Bilirubin 6.9 H, Total Protein 4.7 #L, Albumin 2.3 L, Red Blood Count 4.25, Mean Corpuscular Volume 105.4 H, Mean Corpuscular Hemoglobin 32.5, Mean Corpuscular Hemoglobin Concent 30.8 L, Red Cell Distribution Width 14.5 Vital Signs Date Time Temp Pulse Resp B/P (MAP) Pulse Ox O2 Delivery O2 Flow Rate FiO2 04/23/19 12:00 77/38 04/23/19 08:00 31 85 04/23/19 08:00 100.9 96 92 04/23/19 05:30 Ventilator 04/23/19 02:00 15.0 I&O- Last 24 Hours up to 6 AM 04/23/19 06:00 Intake Total 4150 ml Output Total 775 ml Balance 3375 ml GME ATTESTATION GME ATTESTATION My faculty preceptor for this patient encounter was physically present during the encounter and was fully available. All aspects of the patient interview, examination, medical decision making process, and medical care plan development were reviewed and approved by the faculty preceptor. The faculty preceptor is aware and concurs with the plan as stated in the body of this note and will attest to such by his/her cosignature. ATTENDING NOTE I saw and evaluated the patient. I agree with the findings and plan of care as documented in the resident's note MARIA D NEVILLE DO April 23, 2019 12:42 TYLER BURNETTE MD Apr 24, 2019 12:35
--- NOTE | 2019-04-23 13:05 | IPNPDOC ---
Date Seen The patient was seen on 04/23/19. Progress Note efforts made to connect patients sister in law multiple voicemail messages left, all numbers on file tried. Patient needs emergent possibly life saving percutaneous cholecystostomy drain FAINA. Unable to obtain consent implicit consent assumed given the current circumstances VS, I&O, 24H, Fishbone Vital Signs/I&O Vital Signs Date Time Temp Pulse Resp B/P (MAP) Pulse Ox O2 Delivery O2 Flow Rate FiO2 04/23/19 12:00 77/38 04/23/19 08:00 31 85 04/23/19 08:00 100.9 96 92 04/23/19 05:30 Ventilator 04/23/19 02:00 15.0 I&O- Last 24 Hours up to 6 AM 04/23/19 06:00 Intake Total 4150 ml Output Total 775 ml Balance 3375 ml Laboratory Data 24H LABS Laboratory Tests 2 04/22/19 14:52: Anion Gap 14, Glomerular Filtration Rate 35.5L, Blood Urea Nitrogen 21H, Creatinine 1.56#H, Sodium Level 140, Potassium Level 3.6#, Chloride Level 109H, Carbon Dioxide Level 17L, Calcium Level 8.3L, Aspartate Amino Transf (AST/SGOT) 355H, Alanine Aminotransferase (ALT/SGPT) 240H, Alkaline Phosphatase 315H, Total Bilirubin 5.4H, Total Protein 6.5, Albumin 2.8L, Albumin/Globulin Ratio 0.76L 04/22/19 17:40: Bedside Glucose (Misc Panel) 174H 04/22/19 18:35: Blood Gas Bicarbonate Standard 14.4L, Arterial Blood pH 7.284L, Arterial Blood Partial Pressure CO2 24.5L, Arterial Blood Partial Pressure O2 77.4, Arterial Blood Total CO2 12.1L, Arterial Blood HCO3 11.4L, Arterial Blood Base Excess - 13.2L, Arterial Blood Oxygen Saturation 94.4L 04/22/19 19:25: Bedside Glucose (Misc Panel) 178H 04/22/19 20:11: Anion Gap 17H, Glomerular Filtration Rate 25.6L, Lactic Acid Level 9.7*H, Blood Urea Nitrogen 23H, Creatinine 2.07H, Sodium Level 144, Potassium Level 3.5, Chloride Level 112H, Carbon Dioxide Level 15L, Calcium Level 7.6L, Troponin I < 0.02, Triglycerides Level 147 04/22/19 20:42: Bedside Glucose (Misc Panel) 172H 04/23/19 00:02: Bedside Glucose (Misc Panel) 159H 04/23/19 00:29: Lactic Acid Followup at 4 Hours 9.8*H 04/23/19 01:59: Blood Gas Bicarbonate Standard 7.1L, Arterial Blood pH 6.794*L, Arterial Blood Partial Pressure CO2 69.7*H, Arterial Blood Partial Pressure O2 62.0L, Arterial Blood Total CO2 12.6L, Arterial Blood HCO3 10.5L, Arterial Blood Base Excess - 25.3L, Arterial Blood Oxygen Saturation 73.7L 04/23/19 03:35: Blood Gas Bicarbonate Standard 15.1L, Arterial Blood pH 7.074*L, Arterial Blood Partial Pressure CO2 66.5*H, Arterial Blood Partial Pressure O2 68.0L, Arterial Blood Total CO2 21.1L, Arterial Blood HCO3 19.0L, Arterial Blood Base Excess - 11.8L, Arterial Blood Oxygen Saturation 86.3L 04/23/19 05:19: Nucleated Red Blood Cells % (auto) 0.2H, Neutrophils 66, Band Neutrophils 11, L ymphocytes (Manual) 12L, Monocytes (Manual) 4, Eosinophils (Manual) 1, Metamyelocytes 6H, Platelet Estimate NORMAL, Giant Platelets 1+, Macrocytosis 1+, Prothrombin Time 22.7H, Prothromb Time International Ratio 1.96, Activated Partial Thromboplast Time 41.8H, Anion Gap 27H, Glomerular Filtration Rate 16.5L, Lactic Acid Level 18.1*H, Blood Urea Nitrogen 31H, Creatinine 3.02H, Sodium Level 147H, Potassium Level 4.6#, Chloride Level 105, Carbon Dioxide Level 15L, Calcium Level 7.3L, Aspartate Amino Transf (AST/SGOT) 3214H, Alanine Aminotransferase (ALT/SGPT) 977H, Alkaline Phosphatase 324H, Total Bilirubin 6.9H, Total Protein 4.7#L, Albumin 2.3L, Magnesium Level 2.1, Albumin/Globulin Ratio 0.96L, B-Hydroxybutyrate 3.19H 04/23/19 06:30: Blood Gas Bicarbonate Standard 10.8L, Arterial Blood pH 7.078*L, Arterial Blood Partial Pressure CO2 35.8, Arterial Blood Partial Pressure O2 81.6, Arterial Blood Total CO2 11.4L, Arterial Blood HCO3 10.3L, Arterial Blood Base Excess - 18.8L, Arterial Blood Oxygen Saturation 93.3L 04/23/19 10:37: Blood Gas Bicarbonate Standard 12.7L, Arterial Blood pH 7.186*L, Arterial Blood Partial Pressure CO2 30.6L, Arterial Blood Partial Pressure O2 93.7, Arterial Blood Total CO2 12.3L, Arterial Blood HCO3 11.3L, Arterial Blood Base Excess - 15.6L, Arterial Blood Oxygen Saturation 96.7, Osmolality 323H, Lactic Acid Followup at 4 Hours 22.1*H CBC/BMP Laboratory Tests 04/22/19 14:52 Calcium Level 8.3 L, Aspartate Amino Transf (AST/SGOT) 355 H, Alanine Aminotransferase (ALT/SGPT) 240 H, Alkaline Phosphatase 315 H, Total Bilirubin 5.4 H, Total Protein 6.5, Albumin 2.8 L 04/22/19 20:11 Calcium Level 7.6 L 04/23/19 05:19 Calcium Level 7.3 L, Aspartate Amino Transf (AST/SGOT) 3214 H, Alanine Aminotransferase (ALT/SGPT) 977 H, Alkaline Phosphatase 324 H, Total Bilirubin 6.9 H, Total Protein 4.7 #L, Albumin 2.3 L, Red Blood Count 4.25, Mean Corpuscular Volume 105.4 H, Mean Corpuscular Hemoglobin 32.5, Mean Corpuscular Hemoglobin Concent 30.8 L, Red Cell Distribution Width 14.5 Microbiology Microbiology 04/22/19 Blood Culture - Preliminary, Resulted No growth after 24 hours . All specim... 04/22/19 Blood Culture - Preliminary, Resulted TYLER BURNETTE MD April 23, 2019 13:04
[2019-04-23] MEDS ORDERED: LIDOCAINE 1% MDV 20ML VIAL As Ordered ONE (13:38)
[2019-04-23 14:29] LABS: ABG HCO3 9.6 MEQ/L (22.0-26.0); ABG O2 SATURATION 98.5 % (95.0-99.0); ABG PARTIAL PRESSURE CO2 28.8 mmHg (35.0-45.0); ABG PARTIAL PRESSURE O2 127.5 mmHg (75.0-100.0); ABG STANDARD HCO3 11.1 MEQ/L (22.0-26.0); ABG TOTAL CO2 10.5 MEQ/L (23.0-31.0)
[2019-04-23 14:31] LABS: ABG pH (ARTERIAL) 7.141 UNITS (7.350-7.450)
[2019-04-23] MEDS ORDERED: SODIUM CHLORIDE 0.9% 1000ML IV ONE (17:00)
[2019-04-23] MEDS ORDERED: NOREPINEPHRINE BITARTRATE 16 MG in D5W 484 ML IV SCH (17:32)
--- NOTE | 2019-04-23 17:40 | DS.PDOC ---
Discharge Summary General Date of Admission April 22, 2019 at 00:50 Date of Discharge Date of 04/23/2019 Time of 1533 Discharge Summary CAUSE OF : Choledocholithiasis SECONDARY DIAGNOSIS: 1. cholangitis 2. Pancreatitis 3. Septic shock 4. Lactic acidosis new problem 5. Leukocytosis 6. Abdominal pain 7. Hypernatremia 7. Acute renal failure 8. Shock liver 9. Respiratory failure PROCEDURES PERFORMED DURING STAY: Endotracheal and the patient, central venous catheter placement, percutaneous cholecystostomy tube placement. CONSULTANTS: Critical care, gastroenterology, interventional radiology HOSPITAL COURSE: Patient is a 64-year-old female who presented with several days of abdominal pain she was initially admitted under the diagnosis of pancreatitis was critically realized that this was more likely choledocholithiasis MRCP was ordered which she was minimally able to tolerate, she quickly decompensated acute sulfa was 0 the majority of her hospitalization her CT scan demonstrated no necrosis of her pancreas to indicate antibiotic use. On the evening of 04/22/2019 she became hypotensive aggressive IV fluids were initiated which she did initially respond to. She was started on empiric antibiotics. She did progress to lactic acidosis and septic shock with multiple cardiac arrests requiring intubation, ventilation pressor support. Extensive efforts were made throughout her entire course to contact family without success PFS were able to track telephone number for the patient's older sister we did communicate with 04/23/2019. She did express that the patient previously expressed wishes her to not have ventilator support or aggressive measures taken to prolong her life. She expressed wishes to keep the patient only comfortable and withhold further measures to prolong her life. Shortly thereafter the patient did at 1533. Multiple forms completed and witnessed with verbal consent by 2 nursing staff Delores. For full physical exam and problem list please see progress note from today's date TIME SPENT ON DISCHARGE: 120 minutes Vital Signs/I&Os Vital Signs Date Time Temp Pulse Resp B/P (MAP) Pulse Ox O2 Delivery O2 Flow Rate FiO2 04/23/19 15:30 23/21 (22) 100 04/23/19 15:15 102.5 73 28 96 04/23/19 05:30 Ventilator 04/23/19 02:00 15.0 I&O- Last 24 Hours up to 6 AM 04/23/19 06:00 Intake Total 4150 ml Output Total 775 ml Balance 3375 ml Laboratory Data Labs 24H Laboratory Tests 2 04/22/19 17:40: Bedside Glucose (Misc Panel) 174H 04/22/19 18:35: Blood Gas Bicarbonate Standard 14.4L, Arterial Blood pH 7.284L, Arterial Blood Partial Pressure CO2 24.5L, Arterial Blood Partial Pressure O2 77.4, Arterial Blood Total CO2 12.1L, Arterial Blood HCO3 11.4L, Arterial Blood Base Excess - 13.2L, Arterial Blood Oxygen Saturation 94.4L 04/22/19 19:25: Bedside Glucose (Misc Panel) 178H 04/22/19 20:11: Anion Gap 17H, Glomerular Filtration Rate 25.6L, Lactic Acid Level 9.7*H, Blood Urea Nitrogen 23H, Creatinine 2.07H, Sodium Level 144, Potassium Level 3.5, Chloride Level 112H, Carbon Dioxide Level 15L, Calcium Level 7.6L, Troponin I < 0.02, Triglycerides Level 147 04/22/19 20:42: Bedside Glucose (Misc Panel) 172H 04/23/19 00:02: Bedside Glucose (Misc Panel) 159H 04/23/19 00:29: Lactic Acid Followup at 4 Hours 9.8*H 04/23/19 01:59: Blood Gas Bicarbonate Standard 7.1L, Arterial Blood pH 6.794*L, Arterial Blood Partial Pressure CO2 69.7*H, Arterial Blood Partial Pressure O2 62.0L, Arterial Blood Total CO2 12.6L, Arterial Blood HCO3 10.5L, Arterial Blood Base Excess - 25.3L, Arterial Blood Oxygen Saturation 73.7L 04/23/19 03:35: Blood Gas Bicarbonate Standard 15.1L, Arterial Blood pH 7.074*L, Arterial Blood Partial Pressure CO2 66.5*H, Arterial Blood Partial Pressure O2 68.0L, Arterial Blood Total CO2 21.1L, Arterial Blood HCO3 19.0L, Arterial Blood Base Excess - 11.8L, Arterial Blood Oxygen Saturation 86.3L 04/23/19 05:19: Nucleated Red Blood Cells % (auto) 0.2H, Neutrophils 66, Band Neutrophils 11, Lymphocytes (Manual) 12L, Monocytes (Manual) 4, Eosinophils (Manual) 1, Metamyelocytes 6H, Platelet Estimate NORMAL, Giant Platelets 1+, Macrocytosis 1+, Prothrombin Time 22.7H, Prothromb Time International Ratio 1.96, Activated Partial Thromboplast Time 41.8H, Anion Gap 27H, Glomerular Filtration Rate 16.5L, Lactic Acid Level 18.1*H, Blood Urea Nitrogen 31H, Creatinine 3.02H, Sodium Level 147H, Potassium Level 4.6#, Chloride Level 105, Carbon Dioxide Level 15L, Calcium Level 7.3L, Aspartate Amino Transf (AST/SGOT) 3214H, Alanine Aminotransferase (ALT/SGPT) 977H, Alkaline Phosphatase 324H, Total Bilirubin 6.9H, Total Protein 4.7#L, Albumin 2.3L, Magnesium Level 2.1, Albumin/Globulin Ratio 0.96L, B-Hydroxybutyrate 3.19H 04/23/19 06:30: Blood Gas Bicarbonate Standard 10.8L, Arterial Blood pH 7.078*L, Arterial Blood Partial Pressure CO2 35.8, Arterial Blood Partial Pressure O2 81.6, Arterial Blood Total CO2 11.4L, Arterial Blood HCO3 10.3L, Arterial Blood Base Excess -18 .8L, Arterial Blood Oxygen Saturation 93.3L 04/23/19 10:37: Blood Gas Bicarbonate Standard 12.7L, Arterial Blood pH 7.186*L, Arterial Blood Partial Pressure CO2 30.6L, Arterial Blood Partial Pressure O2 93.7, Arterial Blood Total CO2 12.3L, Arterial Blood HCO3 11.3L, Arterial Blood Base Excess - 15.6L, Arterial Blood Oxygen Saturation 96.7, Bedside Glucose (Misc Panel) 261H, Osmolality 323H, Lactic Acid Followup at 4 Hours 22.1*H 04/23/19 11:27: Bedside Glucose (Misc Panel) 259H 04/23/19 12:25: Bedside Glucose (Misc Panel) 231H 04/23/19 14:10: Bedside Glucose (Misc Panel) 191H 04/23/19 14:14: Blood Gas Bicarbonate Standard 11.1L, Arterial Blood pH 7.141*L, Arterial Blood Partial Pressure CO2 28.8L, Arterial Blood Partial Pressure O2 127.5H, Arterial Blood Total CO2 10.5L, Arterial Blood HCO3 9.6L, Arterial Blood Base Excess - 18.0L, Arterial Blood Oxygen Saturation 98.5 04/23/19 15:15: Bedside Glucose (Misc Panel) 177H CBC/BMP Laboratory Tests 04/22/19 20:11 Calcium Level 7.6 L 04/23/19 05:19 Calcium Level 7.3 L, Red Blood Count 4.25, Mean Corpuscular Volume 105.4 H, Mean Corpuscular Hemoglobin 32.5, Mean Corpuscular Hemoglobin Concent 30.8 L, Red Cell Distribution Width 14.5, Aspartate Amino Transf (AST/SGOT) 3214 H, Alanine Aminotransferase (ALT/SGPT) 977 H, Alkaline Phosphatase 324 H, Total Bilirubin 6.9 H, Total Protein 4.7 #L, Albumin 2.3 L FSBS Laboratory Tests Test 04/22/19 17:40 04/22/19 19:25 04/22/19 20:42 04/23/19 00:02 Range/Units Bedside Glucose (Misc Panel) 174 178 172 159 80-115 MG/DL Test 04/23/19 10:37 04/23/19 11:27 04/23/19 12:25 04/23/19 14:10 Range/Units Bedside Glucose (Misc Panel) 261 259 231 191 80-115 MG/DL Test 04/23/19 15:15 Range/Units Bedside Glucose (Misc Panel) 177 80-115 MG/DL Microbiology Microbiology 04/22/19 Blood Culture - Preliminary, Resulted No growth after 24 hours . All specim... 04/22/19 Blood Culture - Preliminary, Resulted 04/23/19 Gram Stain, Received Pending 04/23/19 Body Fluid Culture, Received Pending Discharge Medications Scheduled Alogliptin Benzoate (Alogliptin) 25 Mg Tab, 25 MG PO DAILY, (Reported) Docusate Sodium (Docusate Sodium) 100 Mg Cap, 200 MG PO DAILY, (Reported) Glyburide (Glyburide) 5 Mg Tab, 20 MG PO DAILY, (Reported) Lisinopril (Lisinopril) 40 Mg Tablet, 40 MG PO DAILY, (Reported) Pantoprazole Sodium (Pantoprazole Sodium) 40 Mg Tablet.dr, 40 MG PO DAILY, (Reported) Allergies Coded Allergies: pseudoephedrine (Verified Allergy, Intermediate, rash, 03/30/19) codeine (Verified Adverse Reaction, Intermediate, vomiting, 03/30/19) TYLER BURNETTE MD April 23, 2019 17:40
--- NOTE | 2019-04-23 18:25 | ECHO ---
DATE OF PROCEDURE: 04/23/2019 REFERRING PHYSICIAN: Trixie Rizzo MD INDICATION: Cardiac arrest. HEIGHT: 170 cm WEIGHT: 107.6 kg 2D MEASUREMENTS: Aortic annulus: 2.0 cm Aortic root: 3.0 cm Proximal ascending aorta: 3.0 cm Left atrium: 2.9 cm Ventricular septum: 1.41 cm Posterior wall: 1.42 cm Left ventricle diastole: 3.4 cm DOPPLER MEASUREMENTS: No aortic stenosis. No aortic regurgitation. Aortic valve velocity: 181 cm/s LVOT velocity: 108 cm/s Mild mitral stenosis. Mild mitral regurgitation. Mitral E velocity: 56.3 cm/s Mitral A velocity: 82.0 cm/s Very mild tricuspid regurgitation. Pulmonary artery systolic pressure 38 mmHg. MITRAL ANNULAR TISSUE DOPPLER: E prime septal: 6.4 cm/s E prime lateral: 5.7 cm/s DESCRIPTION: Rhythm was sinus tachycardia. This was a moderately technically difficult echocardiogram. This was a 2D, M-mode, color flow Doppler and pulse wave Doppler examination that included mitral annular tissue Doppler. CONCLUSIONS: 1. Mild concentric left ventricle hypertrophy. No regional wall motion abnormalities of the left ventricle. Hyperdynamic LV systolic function. LVEF 75% by visual estimate. Grade I LV diastolic dysfunction. 2. Suggestive of mild elevation of pulmonary artery systolic pressure. 3. Mild right ventricle dilatation with preserved RV systolic function. 4. No pericardial effusion. 5. Moderate aortic valve sclerosis of a three-cuspid aortic valve. No aortic stenosis or regurgitation. 6. Moderate mitral annular calcification. No mitral regurgitation or mitral stenosis. 7. No vegetations.
--- NOTE | 2019-04-23 22:43 | CCN ---
DATE: 04/23/2019 SUBJECTIVE: The patient is a 64-year-old female with a history of diabetes, gastroesophageal reflux disease (GERD), obesity, who originally presented on 04/22/2019 when she complained of abdominal pain, nausea, vomiting. The patient was found to have acute pancreatitis. Overnight, the engineering inspector was contacted as the patient was becoming more tachypneic and agitated while in the intensive care unit (ICU). As the patient's agitation increased, it was decided by the overnight hospitalist to perform rapid sequence intubation utilizing Versed and succinylcholine. During the process of intubation, the patient was found to be in pulseless electrical activity (PEA). At that time, three amps of bicarbonate and two founds of epinephrine were given and compressions were initiated, which eventually led to the return of ROSC. The patient was then started on bicarbonate drip 150 mEq at 200ml/hr. Next, a right IJ triple lumen catheter was placed. After this, the patient was noted to again be bradying down, suspected to be secondary to possible extravasating bicarbonate from the peripheral line. The patient eventually reentered PEA with return of ROSC following a single amp of bicarbonate and one run of epinephrine. A right femoral arterial line and femoral dialysis catheter was subsequently placed. The patient's bicarbonate drip was increased to 250ml/hr. She continued to receive amps of bicarbonate as needed. Pressors, Levophed and vasopressin were initiated, as was 10 of propofol for sedation. This morning, the patient remains sedated, on the ventilator, acidotic per blood gas and blood pressures remain relatively soft. PHYSICAL EXAMINATION: VITAL SIGNS: Pulse is 96, blood pressure 80/39, mean arterial pressure of 45, respiratory rate of 28 being ventilated with a tidal volume of 480, a PEEP of 12 and O2 percent of 80. GENERAL: The patient is found to be lying sedated in her intensive care unit (ICU) bed. She does remain on the ventilator, in no visible distress and sedated. HEENT: Normocephalic, atraumatic. Mucous membranes are still slightly dry. She does have some scleral icterus. Pupils remain reactive to light bilaterally. No jugular venous distention (JVD) appreciated. NECK: Supple without any appreciable lymphadenopathy. Trachea remains midline. CARDIOVASCULAR: The patient is relatively tachycardic with a regular rate without any murmurs appreciated. Normal S1, S2. LUNGS: Clear to auscultation bilaterally anteriorly with good air movement. ABDOMEN: The patient is obese. Abdomen is protuberant, slightly tympanitic. EXTREMITIES: Lower extremity edema noted bilaterally. LABORATORY DATA: Complete blood count (CBC): White cell count of 18.5, increased from 14.8 yesterday. Hemoglobin 13.8, hematocrit 44.8. Chemistries this morning showed sodium 147, carbon dioxide 15, anion gap 27, BUN 31, creatinine 3.02, AST/ALT of 3204/977, alkaline phosphatase of 324, albumin remains low at 2.3. Lactic acid this morning of 18.1, which is increased from 9.8 at midnight last evening. The most recent blood gas shows a pH of 7.186, PCO2 of 30.6, PO2 of 93.7, bicarbonate of 11.3, beta-hydroxybutyrate of 3.19. Microbiology: Blood culture is positive for gram-negative rods. IMAGING: Abdominal/pelvis CT (04/21/2019): Read as diffuse decrease in hepatic parenchymal densities, consistent with fatty infiltration. Poorly calcified calculi and sludge demonstrated in the gallbladder. There is peripancreatic inflammatory stranding and fluid consistent with acute pancreatitis. No pseudocyst or phlegmon demonstrated. No intrapancreatic gas demonstrated. Gallbladder ultrasound also on 04/21/2019: Demonstrates cholelithiasis without sonographic evidence of acute cholecystitis, common bile duct dilatation of approximately 1 cm and fatty liver. Abdominal MRI on 04/22/2019: Cholelithiasis and choledocholithiasis observed. Single distant common bile duct calculus is seen. Moderate to marked peripancreatic edema consistent with acute pancreatitis. Gallbladder is somewhat distended and contained stones. Most recent chest x-ray of 04/23/2019: Right internal jugular venous line in good position without pneumothorax. ASSESSMENT AND PLAN: Ms. Juárez is a 64-year-old female with a past medical history of diabetes, fatty liver, gastroesophageal reflux disease (GERD), who presented with complaints of abdominal pain, nausea and vomiting with pain radiating to her back. She was found to have acute pancreatitis, likely secondary to acute choledocholithiasis and possible acute cholangitis. Last evening the patient was found to be increasingly agitated and dyspneic. She did receive rapid sequence intubation and went into subsequent PEA requiring epinephrine and bicarbonate in addition to chest compressions. Central line was placed. Bicarbonate drip initiated. The patient again demonstrated PEA and spontaneous and return of ROSC with bicarbonate and epinephrine. A dialysis catheter was inserted into the patient's right femoral artery. She was started on pressors and remains sedated and continued on ventilation, in addition to Zosyn for broad spectrum antibiotics. PLAN: 1. Cardiac. The patient's blood pressure is running soft at 80/39 with a mean arterial pressure of 45, currently on vasopressin 20 and Levophed 16, suspect sepsis is the likely cause. Plan to add Giaprez at this time and titrate to a mean arterial pressure of 65 and close clinical observation. 2. Pulmonary. The patient's metabolic acidosis has improved. The most recent pH is 7.18, increased from prior blood gas this morning with a pH of 7.078. The patient remains ventilated with Propofol for sedation and vent settings include a tidal volume of 480, respiratory rate of 28, PEEP of 12 and O22 percent of 80. 3. The patient has had minimal urination. Dialysis catheter was placed in the femoral artery last evening. Nephrology was consulted with plan for dialysis today using [facility]. The patient remains on a bicarbonate drip and has been receiving bicarbonate in amps as needed to maintain pressure. 4. Infectious disease. The patient is demonstrating increasing temperatures, 100.9 at this time, likely secondary to gram negative bacteremia from acute cholangitis 2/2 choledocholithiasis and likely necrotic pancreatitis at this point. She is currently being treated with Zosyn. White count this morning was 18.5, increased from 14.8 yesterday. Lactic acid also elevated at 18, increased from 9.8 last night. Blood cultures are positive for gram-negative rods. Tylenol for fever. 5. Hematology. The patient does receive heparin 12 hours. Hemoglobin and hematocrit of 13.8/44.8, platelets of 237. 6. Neurologic. The patient does demonstrate a metabolic encephalopathy, likely secondary to her acidosis. She is receiving morphine 2 mg as needed for pain control, as well as Zofran for nausea. She is currently sedated using propofol. 7. Gastrointestinal. The patient was admitted for pancreatitis and found to have common bile duct dilatation, choledocholithiasis. She is being covered with Zosyn for bacterial infections. Current plan is for bedside drain to be placed in hopes of controlling the patient's infectious source. 8. Endocrine. The patient does have diabetes mellitus type 2. 9. Deep vein thrombosis (DVT) prophylaxis. As mentioned above, the patient is currently being heparinized every 12 hours. 10. Gastrointestinal prophylaxis. The patient is on pantoprazole. CODE STATUS: The patient is a FULL CODE at this time. Prognosis: Guarded MTDD
--- NOTE | 2019-04-23 23:36 | CR ---
DATE OF CONSULTATION: 04/23/2019 REQUESTING PHYSICIAN: Dr. Trixie Rizzo. CONSULTING PHYSICIAN: Dr. Speedy Meraz. REASON FOR CONSULTATION: Management of acute oliguric renal failure and severe metabolic acidosis. CHIEF COMPLAINT: Patient presented to the hospital yesterday with severe abdominal pain. NOTE: History was obtained from the medical team and from patient's chart. Patient was unable to provide any history because she was intubated. This is a late dictation. Patient was seen by myself early in the morning today in the intensive care unit (ICU). HISTORY OF PRESENT ILLNESS: Sweetie Juárez is a 64-year-old female who has known history of diabetes, morbidly obese, history of hypertension. She presented to the hospital yesterday with acute onset of nausea, vomiting, upper abdominal pain, which was radiating to the back. There was no associated fevers or chills. She denied any diarrhea or dysuria. She got a CAT scan of the abdomen done in the emergency room, which showed acute uncomplicated pancreatitis. She did have cholelithiasis without cholecystitis. She was admitted under the hospitalist service. She was started on intravenous (IV) fluid hydration. She was kept nothing by mouth. Despite aggressive initial resuscitation, patient initially became lethargic and hypotensive. She had acute hypoxemic respiratory failure and cardiac arrest overnight. She was intubated and resuscitated overnight. She was oliguric. Her metabolic acidosis was getting worse and because of the renal failure and metabolic acidosis, nephrology service was called early in the morning today. I discussed the case with the on-call resident overnight and decision was made to place a temporary dialysis catheter for initiation of hemodialysis, if needed. I saw and evaluated the patient today morning in the ICU. Patient was intubated, sedated. She was on two pressors when I saw her. She was unresponsive and critically ill when I saw her PAST MEDICAL HISTORY: 1. History of diabetes mellitus type 2, non-insulin dependent. 2. Hypertension. 3. Obesity. 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 ALLERGIES: Patient is allergic to CODEINE AND PSEUDOEPHEDRINE. FAMILY HISTORY: No significant family history of end-stage renal disease requiring hemodialysis. SOCIAL HISTORY: There was no history of smoking, illicit drug abuse or alcohol abuse. REVIEW OF SYSTEMS: Patient was unable to provide any reliable review of systems. She was intubated and sedated. PHYSICAL EXAMINATION: GENERAL: Patient was intubated, sedated, laying in bed. VITAL SIGNS: Today morning, her temperature was 101.6 degrees Fahrenheit, blood pressure was 113/36, pulse was 101, respiratory rate of 26, saturating 96% on the vent with 85% FiO2. HEAD AND NECK EXAM: Pupils were equally round and reactive to light. Mucous membranes are moist. Patient has an endotracheal tube. Neck is supple. She had a right internal jugular (IJ) triple lumen catheter. CARDIOVASCULAR: S1, S2. Tachycardia. No edema of the bilateral lower extremities. RESPIRATORY: Chest was clear to auscultation bilaterally. She had transmitted breath sounds from the from the vent bilaterally. ABDOMEN: Obese, distended. Moderately tender to deep palpation. GENITOURINARY: She had an indwelling [place] catheter. There was no urine in the bag noted. MUSCULOSKELETAL: No clubbing or cyanosis. Weak pulses peripherally were noted. She had cold extremities. 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 Minimal response to painful stimuli. SKIN: No rashes or ulcers. LABORATORY REVIEW: Complete blood count (CBC) showed a WBC of 18.5, hemoglobin 13.8, platelets 237. INR 1.96. Urinalysis done yesterday showed 1+ protein, 3+ glucose. Arterial blood gas (ABG) done early in the morning showed a pH of 7.07, pCO2 of 35, pO2 81, bicarbonate was 11.4 oxygen saturation was 93%. Basic metabolic panel (BMP) done early in the morning showed sodium 147, potassium 4.6, chloride 105, bicarbonate 15, anion gap 27, BUN 31, creatinine 3, lactic acid level latest was 22.1, calcium 7.3. Total bilirubin was seen of 6.9, AST 3214, ALT was 977, alkaline phosphatase 324, albumin 2.3. Beta hydroxybutyrate on admission was 11.5. MICROBIOLOGY: Blood cultures 1 out of 2 showed gram-negative rods. IMAGING STUDIES: Patient got the CAT scan of the abdomen and pelvis on 04/21/2019, which showed fatty infiltration of liver. There was sludge in the gallbladder. There was peripancreatic inflammatory stranding consistent with acute pancreatitis. A gallbladder ultrasound was also done which showed cholelithiasis without sonographic evidence of acute cholecystitis. Common bile duct (CBD) was dilated to 1 cm. Endoscopic retrograde cholangiopancreatography (ERCP) or magnetic resonance cholangiopancreatography (MRCP) was recommended. An MRI of the abdomen was done yesterday. There was single distal CBD stone. There was marked peripancreatic edema consistent with acute pancreatitis. Gallbladder was distended and contained stones CURRENT INPATIENT MEDICATIONS: Patient's inpatient medications include: - propofol - She was on Levophed at 30 mcg - She was getting IV bicarbonate fluid at 250 mL an hour - She was getting insulin sliding scale. - She was on vasopressor at 0.04 units. Patient was also on: - Zosyn 3.375 grams IV every 6 hours - Tylenol as needed - heparin subcutaneous - insulin Levemir 7 units subcutaneous twice a day - morphine as needed for pain - Protonix 40 mg IV daily. - She got amps of sodium bicarbonate. ASSESSMENT: A 64-year-old female with septic shock secondary to acute cholangitis along with acute pancreatitis, acute oliguric renal failure, severe high anion gap metabolic acidosis secondary to diabetic ketoacidosis, and lactic acidosis. PLAN: 1. Acute oliguric renal failure. It is secondary to hypotension, septic shock. Patient has a right groin hemodialysis catheter. I ordered Continuous Veno-Venous Hemodiafiltration (CCVHDF). No fluid removal will be done which on CVVHDF. It is being done for her severe metabolic acidosis and electrolyte abnormalities. 2. High anion gap metabolic acidosis. It is secondary to sepsis induced lactic acidosis and diabetic ketoacidosis. Continue aggressive IV fluid hydration. Continue the IV antibiotics. 3. Diabetic ketoacidosis. Patient had diabetic ketoacidosis on arrival and it is secondary to acute pancreatitis. It has caused euglycemic ketoacidosis. I switched the patient from long-acting insulin to insulin drip in the ICU with every hour fingerstick monitoring. 4. Septic shock. It is secondary to acute cholangitis. Patient has a stone in the distal CBD. She was pending cholecystostomy when I saw her in the morning. She continues to be on IV Zosyn, although the patient is in acute renal failure; however dose is adequate because the patient is going to be started on CVVHDF. 5. Acute cholangitis in acute cholecystitis. It is secondary to CBD stone. Patient is currently on Zosyn. Cholecystostomy as per surgical service. 6. Acute hypoxic and hypercapnic respiratory failure. It is multifactorial secondary to septic shock. Patient is currently intubated. She is requiring 85% FiO2. Vent management is as per pulmonary team. Thank you for involving me in the care of this patient. I shall be happy to follow the patient along with you tomorrow morning. Plan of care was discussed with the Pulmonary team, Dr. rTixie Rizzo. Total critical care time spent in the management of this patient today morning in the ICU was 1 hour and 30 minutes.Excluding any procedures. MTDD
--- NOTE | 2019-04-27 11:52 | REP ---
Ultrasound-guided cholecystostomy during placement This procedure was performed by [facility], under the personal supervision of Dr. Dunn The risks and benefits of the procedure were explained to the patient and two physician consent was obtained both verbally and written, as there was no next of kin available and the patient was unconscious. Directly prior to the start of the procedure, a formal timeout was done in the procedure room. The gallbladder was localized using ultrasound guidance. The skin was prepped and draped in a sterile fashion. 1% lidocaine was used as a local anesthetic. Using ultrasound guidance a small skin rain was made and an 5-[place] side-hole catheter was inserted using trocar technique. 50 mL of red/black colored fluid was withdrawn and and to the lab for analysis. The patient tolerated the procedure well and there were no immediate complications. Reviewed by PATRICK Hansen 04/23/2019 06:10 P Electronically Signed by Oleg Dunn MD 04/27/2019 11:43 A
== END 2019-04-23 18:16 | disposition expired | DRG 438 ==
LOC: M ED 19:54 → M ED INP 04-22 00:50 → M MSPAV 04-22 02:21 → M ICU 04-22 20:00
PROVIDERS: ADMIT Internal Medicine; ATTEND Internal Medicine
PROC: 04HY33Z Insertion of Infusion Device into Lower Artery, Percutaneous Approach (ICD-10-PCS; principal; 2019-04-23)
PROC: 0F9430Z Drainage of Gallbladder with Drainage Device, Percutaneous Approach (ICD-10-PCS; 2019-04-23)
PROC: 02HV33Z Insertion of Infusion Device into Superior Vena Cava, Percutaneous Approach (ICD-10-PCS; 2019-04-23)
DX: K85.10 Biliary acute pancreatitis without necrosis or infection (principal); A41.9 Sepsis, unspecified organism; K72.00 Acute and subacute hepatic failure without coma; R65.21 Severe sepsis with septic shock; J96.01 Acute respiratory failure with hypoxia; N17.9 Acute kidney failure, unspecified; E87.2 Acidosis; E87.0 Hyperosmolality and hypernatremia; I46.9 Cardiac arrest, cause unspecified; Z79.899 Other long term (current) drug therapy; Z88.5 Allergy status to narcotic agent; Z88.8 Allergy status to other drugs, medicaments and biological substances; E11.9 Type 2 diabetes mellitus without complications; E66.9 Obesity, unspecified; K21.9 Gastro-esophageal reflux disease without esophagitis